=== PATIENT | female | born 1955 | race Caucasian/White ===

== ENCOUNTER 2024-04-06 10:36 | Outpatient (AMB) | payer MEDICARE, SELFPAY ==
--- NOTE | 2024-04-06 10:49 | A.OFFVIS_ITS ---
Vital Signs 04/06/24 10:50 Height 5 ft 7.5 in Weight 156 lb 4.924 oz BMI 24.1 BP 120/62 Blood Pressure Location Lt brachial Position Sitting Pulse 85 Pulse Source Pulse Oximeter Pulse Oximetry (%) 96 Oxygen Delivery Method Room Air Intake Visit Reasons: OA/MR Recieved Intake Note: Patient presents for OA follow up, she was last seen in the office at the arthritis treatment center on 12/07/[address] Morales. Allergies sulfamethoxazole [From Bactrim] Allergy (Mild, Verified 04/06/24 10:53) Rash trimethoprim [From Bactrim] Allergy (Mild, Verified 04/06/24 10:53) Rash erythromycin base Adverse Reaction (Mild, Verified 04/06/24 10:53) stomach upset, diarrhea Medication List - Last Reconciled 04/06/24 by Mak Morales MD amlodipine 5 mg PO DAILY arm brace (Wrist Brace) Wear on right wrist during the day when needed. Right CMC splint. Dx osteoarthritis CMC levothyroxine 100 mcg PO DAILY lisinopril 30 mg PO DAILY rosuvastatin 5 mg PO DAILY HPI HPI OA/MR Recieved: Details: Goint to PT for R medial epicondyltis with benefit. Pain in right elbow is now a few times a week. She has modified her exercise routine at the gym. She sporadically experiences pain in right CMC about once every 6 weeks. She uses diclofenac gel with benefit. Records reviewed from [facility] [place]. Rheumatology history: She has history of osteoarthritis affecting bilateral CMCs right worse than left. She also has clinical diagnosis of right medial epicondylitis. Review of Systems Const All systems reviewed & are unremarkable except as noted in HPI and below Physical Exam Vital Signs: Last Vital Signs Pulse 85 04/06/24 10:50 BP 120/62 04/06/24 10:50 Pulse Ox 96 04/06/24 10:50 Oxygen Delivery Method Room Air 04/06/24 10:50 BMI result Body Mass Index 24.1 Const General: cooperative and healthy appearing Extrem Other: Tender to palpate right CMC with squaring. Bilateral CMCs have squaring deformity. No tenderness of right medial epicondyle. No pain at right medial epicondyle with resisted elbow extension and flexion. No swelling of any joints. Assessment & Plan Assessment & Plan (1) Osteoarthritis of CMC joint of thumb: Comment: Right CMC pain is intermittent. We discussed ventricles are of osteoarthritis and management. Code(s): M18.9 - Osteoarthritis of first carpometacarpal joint, unspecified Category: Medical Plan: Continue using diclofenac gel 1% applied to affected area every 4-6 hours as needed CMC splint right side prescribed She will use right CMC splint when she anticipates repetitive motions with her hands such as cooking, gardening or cleaning Return to clinic in 3 months (2) Medial epicondylitis of right elbow: Comment: Improvement with physical therapy Code(s): M77.01 - Medial epicondylitis, right elbow Category: Medical Plan: I recommend that she continue physical therapy and discuss adding ultrasound therapy Return to clinic in 3 months Plan . Medications: New arm brace (Wrist Brace) Wear on right wrist during the day when needed. Right CMC splint. Dx osteoarthritis CMC 1 ea 0RF CMC osteoarthritis M18.9 - Osteoarthritis of first carpometacarpal joint, unspecified Coding Level of Care Code Est Pt Level 3 (94726) Complex EM visit Add On G2211 Diagnoses Osteoarthritis of CMC joint of thumb M18.9 Medial epicondylitis of right elbow M77.01
[2024-04-06 10:50] VITALS: BP 120/62; PULSE 85; O2SAT 96; BMI 24.1
== END 2024-04-06 11:44 | disposition home or self-care (01) ==
PROVIDERS: PCP Family Medicine; Visit Provider Internal Medicine Rheumatology
DX: M18.9 Osteoarthritis of first carpometacarpal joint, unspecified (principal); M77.01 Medial epicondylitis, right elbow
CPT/HCPCS: 99213; G2211

== ENCOUNTER → 2024-04-06 10:36 | Outpatient (BNVA) | payer MEDICARE, SELFPAY | PROVIDERS: PCP Family Medicine; Visit Provider Internal Medicine Rheumatology | DX: M77.01 Medial epicondylitis, right elbow (principal); M18.11 Unilateral primary osteoarthritis of first carpometacarpal joint, right hand | CPT/HCPCS: 99212 ==

== ENCOUNTER 2024-07-07 10:23 | Outpatient (AMB) | payer MEDICARE, SELFPAY ==
--- NOTE | 2024-07-07 10:38 | MHC.OFFVIS ---
Vital Signs 07/07/24 10:40 Height 5 ft 7.5 in Weight 166 lb BMI 25.6 BP 130/70 Blood Pressure Location Lt brachial Position Sitting Pulse 87 Pulse Source Pulse Oximeter Pulse Oximetry (%) 97 Oxygen Delivery Method Room Air Intake Visit Reasons: 3 mo follow up Intake Note: Patient presents for OA follow up. Allergies sulfamethoxazole [From Bactrim] Allergy (Mild, Verified 07/07/24 10:40) Rash trimethoprim [From Bactrim] Allergy (Mild, Verified 07/07/24 10:40) Rash erythromycin base Adverse Reaction (Mild, Verified 07/07/24 10:40) stomach upset, diarrhea HPI HPI 3 mo follow up: Details: Pain in right elbows is intermittent with activity. Lifting her grandchildren exacerbates the pain. There will be times when she will not have any pain for a few hours, which is benefit for patient. She continues to do PT exercises regularly. She was also able to go to the gym a few times a week. She has been rowing and swimming. She was unable to get CMC splints from [facility]. She has been referred to [employer] [facility] [place] in [facility]. [facility] Medical History Elevated lipoprotein(a) Hyperlipidemia Hypothyroidism Vitamin D deficiency Arthralgia of left ankle or foot Surgical History History of colonoscopy H/O: hysterectomy History of cervical discectomy History of bladder suspension procedure Family History Mother Osteoarthritis Stroke Social History Household Members: None Alcohol intake: never Patient Tobacco Use Status: Former Tobacco user Current occupational status: employed Current occupation: membership software Review of Systems Const All systems reviewed & are unremarkable except as noted in HPI and below Physical Exam Vital Signs: Last Vital Signs Pulse 87 07/07/24 10:40 BP 130/70 07/07/24 10:40 Pulse Ox 97 07/07/24 10:40 Oxygen Delivery Method Room Air 07/07/24 10:40 BMI result Body Mass Index 25.6 Const Other: General: Comfortable Skin: No lesions seen MSK: Tender to palpate medial epicondyle right elbow. No pain with resisted wrist flexion. No soft tissue swelling. Squaring of bilateral CMCs. Assessment & Plan Assessment & Plan (1) Medial epicondylitis of right elbow: Comment: Improvement with physical therapy. Pain is now intermittent. We discussed conservative management. She is willing to try short course of NSAID for a month or 2. She was previously advised to avoid NSAIDs due to possibility of side effect with increasing blood pressure. At this time her blood pressure is controlled on 2 antihypertensives. Code(s): M77.01 - Medial epicondylitis, right elbow Category: Medical Plan: Start meloxicam 15 mg daily with food Monitor blood pressure Return to clinic in 3 months. If no benefit on NSAID, I will treat with cortisone injection. (2) Osteoarthritis of CMC joint of thumb: Comment: CMC pain is controlled. Code(s): M18.9 - Osteoarthritis of first carpometacarpal joint, unspecified Category: Medical Plan: Continue using diclofenac gel 1% applied to affected area every 4-6 hours as needed CMC splint right side prescribed. She is in the process of getting CMC splint fitted. She will use right CMC splint when she anticipates repetitive motions with her hands such as cooking, gardening or cleaning Return to clinic in 3 months Orders: Orders Aspartate Amino Transferase Today M77.01 - Medial epicondylitis, right elbow Creatinine Today M77.01 - Medial epicondylitis, right elbow Alanine Aminotransferase Today M77.01 - Medial epicondylitis, right elbow Complete Blood Count Auto Diff Today M77.01 - Medial epicondylitis, right elbow Medications: New meloxicam Take with food 15 mg PO DAILY 30 tabs 2RF Coding Level of Care Code Est Pt Level 3 (04103) Complex EM visit Add On G2211 Diagnoses Medial epicondylitis of right elbow M77.01 Osteoarthritis of CMC joint of thumb M18.9
[2024-07-07 10:40] VITALS: BP 130/70; PULSE 87; O2SAT 97; BMI 25.6
--- OUTSIDE RECORDS SUMMARY | 2024-07-07 11:32 | XMS_ITS | Data Portability ---
Author Organization [place] - [facility], Allergy Address [address] [address] Care Team Providers Care Cloth Mercerizer Operator Name Role Phone EDGAR YANES Primary Care Provider [phone] Assessment Encounter Date Assessment Date Assessment LastModified by Organization Details LastModified Time 11/24/2023 11/24/2023 68 year old female presents today for evaluation of recurrent sinusitis. On examination today she has a left deviated septum. Nasal endoscopy reveals normal nasal mucosa without any polyps or sign of infection. At this time I would recommend observation of her symptoms. Exam today is reassuring. For URI symptoms, recommend she use Afrin BID x 3 days and an intranasal steroid spray to help with sinus drainage, hopefully avoiding need for antibiotics. Her immunotherapy should help reduce any contribution of allergic rhinitis to the frequency of infections. If she has another cold and flu season with frequent antibiotic treatment she will call the office for reevaluation and consideration of sinus imaging. [email or web address] Not available 11/24/2023 13:35:46 04/20/2024 04/20/2024 69 year old female with allergic rhinitis on monthly immunotherapy presents today for evaluation of recurrent sinusitis. She completed a 7-day course of Augmentin and reports symptoms since resolved. On examination today she has a left deviated septum. Nasal endoscopy reveals normal nasal mucosa without any polyps or sign of infection. Recommend daily saline irrigations and intranasal steroid spray to help with nasal congestion and sinus drainage. Reviewed Flonase administration. Her immunotherapy should help reduce any contribution of allergic rhinitis to the frequency of infections. She will return as needed. We will consider CT sinus if she experiences recurrent sinusitis requiring antibiotics this winter. Patient also evaluated by Dr. Lind. frances Not available 04/20/2024 10:31:01 Plan of Treatment Reminders Order Date Submit Date Provider Last Modified By Organization Details Last Modified Time Details Appointments None recorded. Lab None recorded. Referral None recorded. Procedures None recorded. Surgeries None recorded. Imaging None recorded. Medication Orders Flonase Allergy Relief 50 mcg/actua tion nasal spray,estephania maldonadoniall [address] [facility]/Pharmacy #[id number], [address] [facility], [place], [address], 4 09:46:31 Patient TargetsNo targets recorded. Patient InstructionsNo instructions recorded. Reason for Referral None Reported. Problems Name Problem SNOMED Code Status Onset Date Resolution Date Notes Provider Name and Address Organization Details Recorded Time Recurrent acute sinusitis 141845575 Active ODALIS BELLO PA-C [address] [facility],[address] [facility], [place], [address], [place] - [facility] 4 13:32:59 Deviated nasal septum 070043883 Active 024 ODALIS BELLO PA-C [address] [facility],[address] [place] [address], [address], [place] - [facility] 4 13:33:04 Nasal congestion 70379614 Active VALDO RAYO PA-C [address] [facility],[address] [facility], [place], [address], [facility] - [facility] 4 09:43:58 Problem Notes None recorded. Procedures Surgical History Date Name Laterality Status Provider Name and Address Organization Details Recorded Time 04/20/20 24 Nasal Endoscopy completed VALDO RAYO PA-C [address] [facility],[address], [address], [facility] - [facility] 04/20/2024 10:09:06 11/24/19 24 JMSNasal/Sinus Endoscopy completed ODALIS BELLO PA-C [address] [facility],[address], [address], [place] - [facility] 11/24/2023 13:32:53 Hysterectomy completed Gabby Rodriguez [place] - [facility] 11/24/2023 13:09:28 Imaging Results None recorded. Procedure Notes None recorded. Medical Equipment None Reported. Allergies Allergen ID Allergen Name Allergen Category Reaction Reaction Severity Criticality Documentation Date Start Date Code Code System Note Provider Name and Address Organization Details Recorded Time 419190 Bactrim medicatio n Not available Not available Not available 11/24/2023 91553 9 RxNorm Gabby beal, [place] - [facility] 4 13:08:45 051227 erythromy misael medicatio n Not available Not available Not available 11/24/2023 4053 RxNorm Gabby beal, [place] - [facility] 4 13:08:59 Medications Name Sig Start Date Stop Date Status Note LastModified by Organization Details LastModified Time cetirizine 10 mg tablet TAKE 1 TABLET BY MOUTH EVERY DAY NEEDED FOR 30 DAYS active Not Available Not Available No t Available ciprofloxaci n 250 mg tablet PLEASE SEE ATTACHED FOR DETAILED DIRECTIONS active Not Available Not Available N ot Available amlodipine 5 mg tablet TAKE 1 TABLET BY MOUTH EVERY DAY active Not Available Not Available No t Available levothyroxin e 100 mcg tablet TAKE 1 TABLET BY MOUTH EVERY DAY FOR 90 DAYS active Not Available Not Available No t Available polymyxin B sulfate 10,000 unit-trimeth oprim 1 mg/mL eye drops INSTILL 1 DROP IN EACH AFFECTED EYE 3 TIMES A DAY 7 DAYS active Not Available Not Available No t Available lisinopril 30 mg tablet TAKE 1 TABLET BY MOUTH EVERY DAY active Not Available Not Available No t Available montelukast 10 mg tablet TAKE 1 TABLET BY MOUTH EVERY DAY FOR 90 DAYS active Not Available Not Available No t Available hydrochlorot hiazide 25 mg tablet TAKE 1 TABLET BY MOUTH EVERY DAY active Not Available Not Available No t Available estradiol 0.01% (0.1 mg/gram) vaginal cream APPLY AN APPLICATORF UL VAGINALLY 2 TIMES PER WEEK active Not Available Not Available No t Available fluticasone propionate 50 mcg/actuatio n nasal spray,suspen brittney [place] 2 sprays every day by intranasal route, for seasonal allergies, nasal congestion. active Not Available Not Available Not Available amoxicillin 875 mg-potassium clavulanate 125 mg tablet TAKE 1 TABLET BY MOUTH EVERY 12 HOURS FOR 10 DAYS active Not Available Not Available Not Available rosuvastatin 5 mg tablet TAKE 1 TABLET BY MOUTH EVERY DAY FOR 90 DAYS active Not Available Not Available No t Available nitrofuranto in monohydrate/ macrocrystal s 100 mg capsule TAKE 1 CAPSULE BY MOUTH TWICE A DAY active Not Available Not Available No t Available Paxlovid 300 mg (150 mg x 2)-100 mg tablets in a dose pack TAKE 3 TABLETS BY MOUTH TWICE A DAY FOR 5 DAYS DIRECTED active Not Available Not Available No t Available Vitals Date Recorded Body height Body mass index (BMI) Body weight Provider Name and Address Organization Details Last Updated DateTime 11/24/2023 171.45 cm 25 kg/m2 39260.96 g Gabby Rodriguez [place] - [facility] 11/24/2023 13:08:35 Date Recorded Body height Body mass index (BMI) Body weight Provider Name and Address Organization Details Last Updated DateTime 04/20/2024 171.45 cm 25 kg/m2 85677.96 g Gabby [facility] - [facility] 04/20/2024 09:18:34 Social History None recorded. Functional Status None recorded. Mental Status None recorded. Family History Nothing Reported. Medical History No medical history recorded. Gynecological HistoryNo gynecological history recorded. Obstetrics History GPAL:G 0 P 0 0 0 0 Past Encounters Encounter ID Performer Location Encounter Start Date Encounter Closed Date Diagnosis/Indication Diagnosis SNOMED-CT Code Diagnosis ICD10 Code Diagnosis Note [id number] DOALIS BELLO PA-C [facility] [address] [address] 11/24/2023 12:50:08 11/24/2023 13:59:17 Recurrent acute sinusitis 999732283 J01.91 Deviated nasal septum 12 0918561 J34.2 [id number] AURELIO LIND MD [facility] [address] [place] [address] 04/20/2024 09:11:30 04/20/2024 10:08:25 Deviated nasal septum 396200521 J34.2 Recurrent acute sinusitis 317096341 J01.91 Nasal congestion 0701159 0 R09.81 Health Concerns Section Related Observation LastModified by Organization Detai ls LastModified Time None Recorded Concern Status LastModified by Organization Details LastModified Time None Recorded Advance Directives Directive None Recorded Payers Encounter Date Sequence Insurance Name Policy Number Policy Mixon Covered Member ID Mixon Member ID Guarantor Name 11/24/2023 1 [facility]: MEDICARE PPO BLUE (MEDICARE REPLACEMENT PPO) [id number] Mariel Stanleynchon [id number] Mariel Mccrayhon 04/20/2024 1 [facility]: MEDICARE PPO BLUE (MEDICARE REPLACEMENT PPO) [id number] Mariel Stanleynchon [id number] Mariel Mccrayhon Notes Date Note Type Note Provider Name and Address Organization Details Recorded Time 11/24/2023 text/html 68 year old yas zarate presents today for evaluation of recurrent sinus infections.She reports a history of maybe one sinus infection per year. This past winter from February to she had recurrent upper respiratory infection, she was treated three times with antibiotics. She reports the antibiotics did eventually clear with the antibiotics. She has no chronic nasal congestion. Her sense of smell is normal. She has no chronic facial pain or pressure.She has a history of seasonal allergies and his currently undergoing SCIT with AIANE. She started that about 18 months ago. She uses a neti pot. She takes Lilibeth as needed.She has not had any imaging to date. ODALIS BELLO PA-C [address], [address], [facility] - [facility] 11/24/2023 13:36:01 04/20/2024 text/html 69 year old yas zarate with allergic rhinitis on monthly immunotherapy presents today for evaluation of recurrent sinusitis. She reports an URI 4 weeks ago that transitioned into an acute sinus infection. Symptoms at the time included facial pressure, upper dental pain, and green malodorous nasal drainage. She was treated with 7-day course of Augmentin and endorses symptoms resolved with the antibiotic. Reports this is her second sinusitis episode this year. Today she reports some residual nasal congestion. Denies nasal obstruction, rhinorrhea, anosmia, facial pain, dental pain, otalgia, or throat involvement. Denies headache or migraine. She is not currently using Neti Pot saline irrigations or intranasal steroid spray. No history of sinus surgery. AURELIO LIND MD [address] [facility],[address], [address], [facility] - [facility] 04/20/2024 15:20:08 OBGyn Episode No OBEpisode recorded.
--- OUTSIDE RECORDS SUMMARY | 2024-07-07 11:32 | XMS_ITS | Continuity of Care Document ---
Author Organization [facility] Address [address] [facility] [address] [place], [place] Phone [phone] Care Team Providers Care Solutions Sales Consultant Name Role Phone Adriana Monroy Care Team Information Receive r SHIVANI Avila M.D. 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 Social History Type Date Description Comments Sex Unknown Allergies and adverse reactions Active Allergies Criticality Reaction Severity Comments Date Bactrim Unable to assess criticality 02/04/2018 Medications Active Medications SIG Qnty Indications Order ing Provider Date Maeeckuwcx93no Tablets Take 1 Tablet Every Day Unknown Multivitamin WomensChewtabs 1 tab by mouth every day Unknown ProbioticCapsules 1 by mouth every day Unknown BiotinCapsules 1 every day Unknown Cromolyn Sodium4% Solution Instill 1 To 2 Drops In Each Eye 4 To 6 Times Daily If Needed For Juan Unknown Axjsmtrmz418hob Tablets 1 by mouth every day 90tabs Adriana Monroy Amlodipine Xurkzcid3ox Tablets Take 1 Tablet Every Day Unknown Clonidine HCL0.1mg Tablets Take 1 Tablet AT Bedtime Unknown Nbgqrgpvwzveaiugego91.5mg Capsules Take One Capsule Every Day Unknown Olopatadine HCL0.1% Solution Adriana Monroy History Medications Clonidine HCL0.1mg/24HR Patches Weekly Unknown - 02/04/2018 Tobramycin-Dexamethasone0 .3-0.1% Suspension Unknown 0 - 02/04/2018 Rgqnaqxjjgavnfpycsa74.5mg Tablets Adriana Monroy - 02/04/2018 Dhovfugxnhgpmmlyhjy54hf Tablets Take 1 Tablet By Mouth Once A Day as Directed Unknown - 02/04/2018 Llivhq25% Solution Unknown - 02/04/2018 Premarin0.625mg Tablets Take 1 Tablet By Mouth Every Day Unknown - 02/04/2018 Diclofenac Sodium1% Gel Apply 4 GM To Hi p 2-3 Times Per Day For 10 Days For Itb Syndrome Unknown - 02/04/2018 Triamcinolone Acetonide0.1% Cream Apply To Affected Areas On Abdomen Twice Daily For Itch. Not For Use O Unknown - 02/04/2018
== END 2024-07-07 11:15 | disposition home or self-care (01) ==
PROVIDERS: PCP Family Medicine; Visit Provider Internal Medicine Rheumatology
DX: M77.01 Medial epicondylitis, right elbow (principal); M18.9 Osteoarthritis of first carpometacarpal joint, unspecified
CPT/HCPCS: 99213; G2211

== ENCOUNTER → 2024-07-07 10:23 | Outpatient (BNVA) | payer MEDICARE, SELFPAY | PROVIDERS: PCP Family Medicine; Visit Provider Internal Medicine Rheumatology | DX: M77.01 Medial epicondylitis, right elbow (principal); M18.9 Osteoarthritis of first carpometacarpal joint, unspecified | CPT/HCPCS: 99212 ==

== ENCOUNTER 2024-10-06 10:23 | Outpatient (AMB) | payer MEDICARE, SELFPAY ==
[2024-10-06 10:25] VITALS: BP 130/80; PULSE 78; O2SAT 98
--- NOTE | 2024-10-06 10:25 | A.OFFVIS_ITS ---
Vital Signs 10/06/24 10:25 Height 5 ft 7.5 in BP 130/80 Blood Pressure Location Lt brachial Position Sitting Pulse 78 Pulse Source Pulse Oximeter Pulse Oximetry (%) 98 Oxygen Delivery Method Room Air Intake Visit Reasons: 3 Months Intake Note: Patient presents for OA follow up. Accompanied by: Self / Same As Patient Allergies sulfamethoxazole [From Bactrim] Allergy (Mild, Verified 10/06/24 10:25) Rash trimethoprim [From Bactrim] Allergy (Mild, Verified 10/06/24 10:25) Rash erythromycin base Adverse Reaction (Mild, Verified 10/06/24 10:25) stomach upset, diarrhea HPI HPI 3 Months: Details: Meloxicam caused insomnia. PT helped. Movements with lifting grandchildren and gardening exacerbates pain. Lasts the day. Gardening aggrevates right CMC. PFSH Medical History Elevated lipoprotein(a) Hyperlipidemia Hypothyroidism Vitamin D deficiency Arthralgia of left ankle or foot Surgical History History of colonoscopy H/O: hysterectomy History of cervical discectomy History of bladder suspension procedure Family History Mother Osteoarthritis Stroke Social History Household Members: None Alcohol intake: never Patient Tobacco Use Status: Former Tobacco user Current occupational status: employed Current occupation: membership software Physical Exam Vital Signs: Last Vital Signs Pulse 78 10/06/24 10:25 BP 130/80 10/06/24 10:25 Pulse Ox 98 10/06/24 10:25 Oxygen Delivery Method Room Air 10/06/24 10:25 Assessment & Plan Assessment & Plan (1) Medial epicondylitis of right elbow: Comment: Improvement with physical therapy. Onset of pain is related to triggering activity such as lifting grandchildren and gardening. We discussed next steps with trying an alternative NSAID. She had rare side effect of insomnia due to meloxicam use. She is willing to try elbow support band with 2 week period of Celebrex. We discussed side effects of Celebrex. Code(s): M77.01 - Medial epicondylitis, right elbow Category: Medical Plan: Start celecoxib 200 mg twice a day Prescription for elbow support band given to patient Monitor blood pressure Return to clinic in 3 months. If no benefit on NSAID, I will treat with cortisone injection. (2) Osteoarthritis of CMC joint of thumb: Comment: CMC pain is no controlled Code(s): M18.9 - Osteoarthritis of first carpometacarpal joint, unspecified Category: Medical Plan: Occupational therapy ordered with customized CMC splint, paraffin wax bath trial, and exercise program. She prefers to do occupational therapy in [place]. Prescription given to patient Return to clinic in 3 months. If no improvement, consider cortisone injection next visit Orders: Orders OT Evaluation and Treatment Today M18.9 - Osteoarthritis of first carpometacarpal joint, unspecified Medications: New arm brace As directed Right elbow support band Dx: medial epicondylitis 1 ea 0RF celecoxib 200 mg PO BID 60 caps 2RF Discontinued meloxicam Take with food Discontinued Reason: Doctor's Order 15 mg PO DAILY 30 tabs 2RF Coding Level of Care Code Est Pt Level 4 (70642) Complex EM visit Add On G2211 Diagnoses Medial epicondylitis of right elbow M77.01 Osteoarthritis of CMC joint of thumb M18.9
--- OUTSIDE RECORDS SUMMARY | 2024-10-06 10:56 | XMS_ITS | Encounter Summary ---
Author Organization [facility] Address [address] [facility] [address] [place] [address] Phone Care Team Providers Care Retort Loader Name Role Phone Kristi Sheehan MD Primary Care Provider + Reason for Visit * Reason Comments Med Refill Encounter Details Date Type Department Care Team (Late st Contact Info) Description 10/05/2020 Refill [facility] [address] [facility] [address] [place] [address] Micheal Figueredo MD [address] [facility] [address] [place] [phone] Social History Tobacco Use Types Packs/Day Years Used Date Smoking Tobacco: Never Assessed Comments Unknown Sex and Gender Information Value Date Recorded Sex Assigned at Not on file Legal Sex Female 4:35 PM EST Gender Identity Not on file Sexual Orientation Not on file documented as of this encounter Miscellaneous Notes * Telephone Encounter - Jazmin Leija - 10/17/2020 4:49 PM EDT When I checked last week I couldn't find her at all; but when I checked today I somehow can see herchart on [facility] and [facility] and most previous notes. --Not sure what happened there? * Telephone Encounter - Micheal Figueredo MD - 10/06/2020 11:06 AM EDT I cannot find a chart on her in [facility] or 2 but I believe we have seen her. Maybe she is under another name? documented in this encounter Plan of Treatment Not on file documented as of this encounter Visit Diagnoses Not on filedocumented in this encounter Care Teams Retort Loader Relationship Specialty Start Date End Date Kristi Sheehan MD [address] [place] [phone] PCP - General Family Medicine 11/12/22 documented as of this encounter
--- OUTSIDE RECORDS SUMMARY | 2024-10-06 10:56 | XMS_ITS | Continuity of Care Document ---
Author Organization [facility] Address [address] [facility] [address] [place], [place] Phone [phone] Care Team Providers Care Machine Filler Shredder Name Role Phone Adriana Monroy Care Team [...] SIG Qnty Indications Order ing Provider Date Vsgxnfifff12fb Tablets Take 1 Tablet Every Day Unknown Multivitamin WomensChewtabs 1 tab by mouth every day Unknown ProbioticCapsules 1 by mouth every day Unknown BiotinCapsules 1 every day Unknown Cromolyn Sodium4% Solution Instill 1 To 2 Drops In Each Eye 4 To 6 Times Daily If Needed For Juan Unknown Zaemakzwm058xkx Tablets 1 by mouth every day 90tabs Adriana Monroy Amlodipine Ytvhimrs0lv Tablets Take 1 Tablet Every Day Unknown Clonidine HCL0.1mg Tablets Take 1 Tablet AT Bedtime Unknown Wcciacivdskuxsilatx99.5mg Capsules Take One Capsule Every Day Unknown Olopatadine HCL0.1% Solution Adriana Monroy History Medications Clonidine HCL0.1mg/24HR Patches Weekly Unknown - 02/04/2018 Tobramycin-Dexamethasone0 .3-0.1% Suspension Unknown 0 - 02/04/2018 Ituglduxztzsehksilr56.5mg Tablets Adriana Monroy - 02/04/2018 Qpideentdlnquqjfstn95ve Tablets Take 1 Tablet By Mouth Once A Day as Directed Unknown - 02/04/2018 Rbxcah26% Solution Unknown - 02/04/2018 Premarin0.625mg Tablets Take [...]
--- OUTSIDE RECORDS SUMMARY | 2024-10-06 10:56 | XMS_ITS | Encounter Summary ---
Author Organization [facility] Address 100 [facility] 200 [place] [address] Phone Care Team Providers Care Supplier Quality Engineer Name Role Phone Kristi Sheehan MD Primary Care Provider + Encounter Details Date Type Department Care Team (Late st Contact Info) Description 10/03/2021 Documentation Only [facility] 100 [facility] 200 [place] [address] Micheal Figueredo MD [address] [facility] 204 [place] [phone] Social History Tobacco Use Types Packs/Day Years Used Date Smoking Tobacco: Never Smokeless Tobacco: Never Alcohol Use Standard Drinks/Week Comments Yes 0 (1 standard drink = 0.6 oz pure alcohol) Alcoholic Drinks/day: Occasional social drink Comments Unknown Sex and Gender Information Value Date Recorded Sex Assigned at Not on file Legal Sex Female 4:35 PM EST Gender Identity Not on file Sexual Orientation Not on file documented as of this encounter Plan of Treatment Not on file documented as of this encounter Visit Diagnoses Not on filedocumented in this encounter Care Teams Supplier Quality Engineer Relationship Specialty Start Date End Date Kristi Sheehan MD [address] [place] [phone] PCP - General Family Medicine 11/12/22 documented as of this encounter
--- OUTSIDE RECORDS SUMMARY | 2024-10-06 10:56 | XMS_ITS | Encounter Summary ---
Author Organization [facility] Address 100 [facility] 200 [place] [address] Phone Care Team Providers Care Pediatric Surgeon Name Role Phone Kristi Sheehan MD Primary Care Provider + Reason for Visit * Reason Comments Med Refill Encounter Details Date Type Department Care Team (Late st Contact Info) Description 06/30/2021 Refill [facility] 100 [facility] 200 [place] [address] Micheal Figueredo MD [address] [facility] 204 [place] [phone] Social History Tobacco Use Types Packs/Day Years Used Date Smoking Tobacco: Never Alcohol Use Standard Drinks/Week Comments [...] encounter Miscellaneous Notes * Telephone Encounter - Micheal Figueredo MD - 06/30/2021 5:07 PM EST Not seen in years documented in this encounter Plan of Treatment Not on file documented as of this encounter Visit Diagnoses Not on filedocumented in this encounter Care Teams Pediatric Surgeon Relationship Specialty Start Date End Date Kristi Sheehan MD [address] [place] [phone] PCP - General Family Medicine 11/12/22 documented as of this encounter
--- OUTSIDE RECORDS SUMMARY | 2024-10-06 10:56 | XMS_ITS | Clinical Summary ---
Author Organization [facility] Address 100 [facility] [address] 0 [place] [address] Phone Care Team Providers Care Polisher Sand Name Role Phone Kristi Sheehan MD Primary Care Provider + Allergies Active Allergy Reactions Criticality Noted Date Comments Azithromycin Rash Low 03/03/2017 Erythromycin 05/17/2017 Ibuprofen 03/03/2017 Cannot take due to HTN Oxycodone-Acetaminophen Nausea Only 03/03/2017 Can tolerate tylenol with codeine Sulfamethoxazole-Trimethopr im Rash Low 03/03/2017 Medications levothyroxine (SYNTHROID, LEVOTHROID) 100 MCG tablet Take 100 mcg by mouth 1 (one) time each day 7 Active rosuvastatin (CRESTOR) 5 MG tablet Take 5 mg by mouth 1 (one) time each day 3 Active hydroCHLOROthia zide 25 MG tablet TAKE 1 TABLET BY MOUTH 1 TIME EACH DAY. 90 tablet 3 3 Active amLODIPine (NORVASC) 5 MG tablet TAKE 1 TABLET BY MOUTH EVERY DAY 90 tablet 1 5 Active lisinopril (PRINIVIL,ZESTR IL) 30 MG tablet TAKE 1 TABLET BY MOUTH EVERY DAY 90 tablet 1 5 Active amLODIPine (NORVASC) 5 MG tablet Take 1 tablet (5 mg total) by mouth 1 (one) time each day 90 tablet 1 4 09/22/19 25 Discontinued lisinopril (PRINIVIL,ZESTR IL) 30 MG tablet Take 1 tablet (30 mg total) by mouth 1 (one) time each day 90 tablet 1 4 05/07/20 25 Discontinued Active Problems Problem Noted Date Diagnosed Date Hypertension 08/03/2017 Encounters Date Type Department Care Team Description 09/21/2024 Refill [facility] 100 [facility] [address] [place] [address] Micheal Figueredo MD from Last 3 Months Immunizations Immunization Administration Dates Next Due Influenza Split High Dose Preservative Free IM 1 Influenza, MDCK, PF, Quadrivalent 03/10/2018, Influenza, Quadrivalent, Preservative Free 05/13 Influenza, Recombinant, Quadrivalent, Pf 019 Family History Medical History Relation Comments Cancer Father Lung cancer Heart disease Father Hypertension Mother Relation Status Comments Father (Age 62) Mother Alive Social History Tobacco Use Types Packs/Day Years [...] on file Sexual Orientation Not on file Last Filed Vital Signs Vital Sign Reading Time Taken Comments Blood Pressure 136/68 11/12/2022 9:46 AM EDT Pulse 68 11/12/2022 9:46 AM EDT Temperature - - Respiratory Rate - - Oxygen Saturation 97% 11/12/2022 9:46 AM EDT Inhaled Oxygen Concentration - - Weight 74.9 kg (165 lb 3.2 oz) 11/12/2022 9:46 A M EDT Height 172.7 cm (5' 8 ) 11/12/2022 9:46 AM EDT Body Mass Index 25.12 11/12/2022 9:46 AM EDT Plan of Treatment Health Maintenance Due Date Last Done Comments Breast Cancer Screening 1955 Colorectal Cancer Screening: Annual FOBT 2003 Colorectal Cancer Screening: Colonoscopy 2003 Colorectal Cancer Screening: Sigmoidoscopy 2003 Pneumococcal Vaccine: 50+ Years (2 of 2 - PPSV23, PCV20, or PCV21) 09/30/2012 08/05/2012 Influenza Vaccine (Season Ended) 2025 02/22/2020, 03/03/2019, 03/10/2018, Additional history exists Pneumococcal Vaccine: Peds (0 to 5 Years) and At-Risk Patients (6 to 49 Years) Discontinued 08/05/2012 Hepatitis B Vaccine Aged Out No longe r eligible based on patient's age to complete this topic Insurance [facility] Care Teams Polisher Sand Relationship Specialty Start Date End Date Kristi Sheehan MD [address] [place] [phone] PCP - General Family Medicine 11/12/22
== END 2024-10-06 11:08 | disposition home or self-care (01) ==
LOC: HO.RHES 10:24
PROVIDERS: PCP Family Medicine; Visit Provider Internal Medicine Rheumatology
DX: M77.01 Medial epicondylitis, right elbow (principal); M18.9 Osteoarthritis of first carpometacarpal joint, unspecified
CPT/HCPCS: 99214; G2211

== ENCOUNTER → 2024-10-06 10:23 | Outpatient (BNVA) | payer MEDICARE, SELFPAY | PROVIDERS: PCP Family Medicine; Visit Provider Internal Medicine Rheumatology | DX: M77.01 Medial epicondylitis, right elbow (principal); M18.9 Osteoarthritis of first carpometacarpal joint, unspecified | CPT/HCPCS: 99212 ==

== ENCOUNTER 2025-04-11 09:39 | Outpatient (AMB) | payer MEDICARE, SELFPAY ==
--- NOTE | 2025-04-11 09:42 | A.OFFVIS_ITS ---
Vital Signs 04/11/25 09:43 Height 5 ft 7.5 in Weight 168 lb 6.931 oz BMI 26.0 BP 140/80 H Blood Pressure Location Lt brachial Position Sitting Pulse 81 Pulse Source Pulse Oximeter Pulse Oximetry (%) 98 Oxygen Delivery Method Room Air Intake Visit Reasons: 3 months Intake Note: Patient presents for OA follow up. Accompanied by: Self / Same As Patient Allergies sulfamethoxazole (From Bactrim) Allergy (Mild, Verified 04/11/25 09:43) Rash trimethoprim (From Bactrim) Allergy (Mild, Verified 04/11/25 09:43) Rash erythromycin base Adverse Reaction (Mild, Verified 04/11/25 09:43) stomach upset, diarrhea HPI HPI 3 months: Details: Elbow discomfort is less frequent with activity modification. Completed OT. She was on Celebrex for 3 weeks without benefit. She has underlying history of hypertension and does not want to be on NSAIDs shelter. She has not been consistent with home exercise program. 2 weeks ago she started feeling tightness behind the right knee. Precipitated with contra dancing. Denies knee swelling. Knee initially buckled. She iced knee. She had recurrent knee buckling. She saw ortho. X-ray showed arthritis. She had a cortisone injection. Pain 1- 2/10 now, improved. She has PT scheduled next month 04/2025. Certain movements agrevates right knee pain. [facility] Medical History Elevated lipoprotein(a) Hyperlipidemia Hypothyroidism Vitamin D deficiency Arthralgia of left ankle or foot Surgical History History of colonoscopy H/O: hysterectomy History of cervical discectomy History of bladder suspension procedure Family History Mother Osteoarthritis Stroke Social History Household Members: None Alcohol intake: never Patient Tobacco Use Status: Former Tobacco user Current occupational status: employed Current occupation: [email or web address] Physical Exam Vital Signs: Last Vital Signs Pulse 81 04/11/25 09:43 BP 140/80 H 04/11/25 09:43 Pulse Ox 98 04/11/25 09:43 Oxygen Delivery Method Room Air 04/11/25 09:43 BMI result Body Mass Index 26.0 Const Other: General: Comfortable Skin: No lesions seen MSK: No tenderness to palpate medial epicondyle right elbow. No pain with resisted wrist flexion. No soft tissue swelling. Squaring of bilateral CMCs. No tenderness of right knee. Normal range of motion of knee. Negative anterior and positive drawer sign. No knee effusion. Assessment & Plan Assessment & Plan (1) Medial epicondylitis of right elbow: Comment: Improvement with occupational therapy. Frequency is less with activity modification. Rheumatology history: Onset of pain is related to triggering activity such as lifting grandchildren and gardening. She had rare side effect of insomnia due to meloxicam use. She is willing to try elbow support band with 2 week period of Celebrex. Celebrex was ineffective. Completed OT. Code(s): M77.01 - Medial epicondylitis, right elbow Category: Medical Plan: Continue home exercise program learned from OT Return to clinic PRN. If she has a flare, she will call office for an appointment for cortisone injection (2) Osteoarthritis of CMC joint of thumb: Comment: CMC pain is controlled with occupational therapy Code(s): M18.9 - Osteoarthritis of first carpometacarpal joint, unspecified Category: Medical Plan: She will resume exercises learned from occupational therapy Return to clinic PRN (3) Right knee pain: Comment: Likely related to osteoarthritis flare in setting of new activity contra dancing. Improved substantially with cortisone injection given to her by orthopedic surgeon. Unremarkable exam. Code(s): M25.561 - Pain in right knee Category: Medical Plan: I recommend that she start physical therapy that is schedule next month Use knee brace for support. She will try to purchase [facility] compression sleeve. If she does not find benefit with compression sleeve, she may call office for prescription for hinged brace Return to clinic PRN She will follow up with orthopedic surgery after she completes PT Coding Level of Care Code Complex visit Add On G2211 Diagnoses Medial epicondylitis of right elbow M77.01 Osteoarthritis of CMC joint of thumb M18.9 Right knee pain M25.561
[2025-04-11 09:43] VITALS: BP 140/80; PULSE 81; O2SAT 98; BMI 26.0
--- OUTSIDE RECORDS SUMMARY | 2025-04-11 11:13 | XMS_ITS | Encounter Summary ---
Author Organization [facility] Address [address] [place] [address] Phone Care Team Providers Care Luncheonette Operator Name Role Phone Pcp, Unknown Primary Care Provider UnavailAdriana Tsai MD Primary Care Provider [phone] Adriana Monroy MD Primary Care Provider [phone] Kristi Sheehan MD Primary Care Provider + Encounter Details Date Type Department Care Team (Late st Contact Info) Description 03/07/2017 Ancillary Orders [address] [address] Vera Pitts MD m Screening breast examination Social History Tobacco Use Types Packs/Day Years Used Date Smoking Tobacco: Never Assessed Comments Unknown Sex and Gender Information Value Date Recorded Sex Assigned at Female 11/21/2021 5:09 PM EDT Legal Sex Female 6:22 PM EST Gender Identity Female 11/21/2021 5:09 PM EDT Sexual Orientation Straight 11/21/2021 5: 09 PM EDT documented as of this encounter Plan of Treatment Upcoming Encounters Date Type Department Care Team (Late Contact Info) Description 05/05/2025 8:00 AM EST Office Visit [facility] Orthopedics & Sports Medicine [address] [place] [phone] Amita Rivera MD [address] [place] [address] Orthopedics & Sports Medicine, [facility] [place] [address] [email or web address] documented as of this encounter Results * BI MAMMOGRAM SCREENING WITH TOMOSYNTHESIS WITH CAD (BILATERAL) (04/03/2017 4:24 PM EST) Anatomical Region Laterality Modality Breast Left, Breast Right, Breast Bilateral Bila teral Mammography 04/06/2017 9:31 AM EST Impressions 04/06/2017 9:58 AM EST No mammographic change indicative of malignancy. Routine screening is recommended. BI-RADS CATEGORY: 2 - Benign finding. DENSITY: There are scattered fibroglandular densities. POS - CDHMAMA Narrative 04/06/2017 9:58 AM EST FINDINGS: Bilateral full-field digital screening mammography is obtained and read in conjunction with computer-aided detection. 3-D tomosynthesis as well as 2-D C view imaging is also performed. Comparison includes the most recent exam from 04/02/2016 and as far back as 03/11/2011. Breast parenchyma is composed of scattered fibroglandular densities. Scattered benign-appearing calcifications. No new dominant mass, suspicious microcalcifications, architectural distortion, focal skin thickening, or new asymmetry is detected. Procedure Note Reed Maher MD - 04/06/2017 FINDINGS: Bilateral full-field digital screening mammography is obtained and read inconjunction with computer-aided detection. 3-D tomosynthesis as well as2-D C view imaging is also performed. Comparison includes the most recentexam from 04/02/2016 and as far back as 03/11/2011. Breast parenchyma is composed of scattered fibroglandular densities.Scattered benign-appearing calcifications. No new dominant mass,suspicious microcalcifications, architectural distortion, focal skinthickening, or new asymmetry is detected. IMPRESSION: No mammographic change indicative of malignancy. Routine screening isrecommended. BI-RADS CATEGORY: 2 - Benign finding. DENSITY: There are scattered fibroglandular densities. POS - CDHMAMA us Vera Pitts MD IMG MG EXAMS Final Resu lt documented in this encounter Visit Diagnoses Diagnosis Screening breast examination Other screening breast examination Screening breast examination Other screening breast examination documented in this encounter Additional Health Concerns Infection Onset Date Last Indicated Resolved Time CoV-Risk 02/24/2022 02/24/2022 03/07/2022 1:23 AM EDT documented as of this encounter Care Teams Luncheonette Operator Relationship Specialty Start Date End Date Pcp, Unknown PCP - General 03/07/17 04/02/17 Adriana Monroy MD [address] [place] [phone] [email or web address] PCP - General Internal Medicine 04/03/17 05/31/21 Adriana Monroy MD [address] [place] [phone] PCP - General Internal Medicine 06/01/21 08/23/22 Kristi Sheehan MD [address] [place] [phone] PCP - General Family Medicine 08/24/22 documented as of this encounter Additional Source Comments The information contained in this document represents components of the legal health record. It is not the complete legal health record.[facility]
--- OUTSIDE RECORDS SUMMARY | 2025-04-11 11:13 | XMS_ITS | Encounter Summary ---
Author Organization [facility] Address [address] [place] [address] Phone Care Team Providers Care Elephant Tamer Name Role Phone Adriana Monroy MD Primary Care Provider Kristi Sheehan MD Primary Care Provider + Encounter Details Date Type Department Care Team (Late st Contact Info) Description 02/14/2022 Procedure Pass [facility] - [address] [place] [address] Social History Tobacco Use Types Packs/Day Years Used Date Smoking Tobacco: Never Smokeless Tobacco: Never Alcohol Use Standard Drinks/Week Comments Not Currently 0 (1 standard drink = 0.6 oz pur e alcohol) Rare, 2 drinks per month Comments No Sex and Gender Information Value Date Recorded Sex Assigned at Female 11/21/2021 5:09 PM EDT Legal Sex Female 6:22 PM EST Gender Identity Female 11/21/2021 5:09 PM EDT Sexual Orientation Straight 11/21/2021 5: 09 PM EDT Occupation Industry Job Start Date Job End Date Retired Not on file Not on file Not on file documented as of this encounter Plan of Treatment Upcoming Encounters Date Type Department Care Team (Late st Contact Info) Description 05/05/2025 8:00 AM EST Office Visit [facility] Orthopedics & Sports Medicine [address] [place] [address] Amita Rivera MD [address] [place] [address] Orthopedics & Sports Medicine, [facility] [place] [address] documented as of this encounter Visit Diagnoses Not on filedocumented in this encounter Additional Health Concerns Infection Onset Date Last Indicated Resolved Time CoV-Risk 02/24/2022 02/24/2022 03/07/2022 1:23 AM EDT Assessment Noted Time PHQ-2 Depression Total Score: 0 11/22/19 4:46 PM EDT documented as of this encounter Care Teams Elephant Tamer Relationship Specialty Start Date End Date Adriana Monroy MD [address] [place] [phone] PCP - General Internal Medicine 06/01/21 08/23/22 Kristi Sheehan MD [address] [place] [phone] PCP - General Family Medicine 08/24/22 documented as of this encounter Additional Source Comments The information contained in this document represents components of the legal health record. It is not the complete legal health record.[facility]
--- OUTSIDE RECORDS SUMMARY | 2025-04-11 11:13 | XMS_ITS | Encounter Summary ---
Author Organization [facility] Address [address] [place] [address] Phone Care Team Providers Care Rn Procedure Name Role Phone Adriana Monroy MD Primary Care Provider + [phone] Adriana Monroy MD Primary Care Provider + [phone] Kristi Sheehan MD Primary Care Provider + Encounter Details Date Type Department Care Team (Late Contact Info) Description 03/11/2021 Transcribe Orders Virtual Department [address] [place] [address] Adriana Monroy MD [address] [place] [address] Localized swelling, mass and lump, unspecified (Primary Dx) Social History Tobacco Use Types Packs/Day Years [...] Description 05/05/2025 8:00 AM EST Office Visit [facility] Orthopedics & Sports Medicine [address] [place] [address] Amita Rivera MD [address] [place] [address] Orthopedics & Sports Medicine, [place] [address] [email or web address] documented as of this encounter Visit Diagnoses Diagnosis Localized swelling, mass and lump, unspecified- Primary documented in this encounter Additional Health Concerns Infection Onset Date Last Indicated Resolved Time CoV-Risk 02/24/2022 02/24/2022 03/07/2022 1:23 AM EDT documented as of this encounter Care Teams Rn Procedure Relationship Specialty Start Date End Date Adriana Monroy MD [address] [place] [phone] [email or web address] PCP - General Internal Medicine 04/03/17 05/31/21 Adriana Monroy MD [address] [place] [phone] PCP - General Internal Medicine 06/01/21 08/23/22 Kristi Sheehan MD [address] [place] [phone] PCP - General Family Medicine 08/24/22 documented as of this encounter Additional Source Comments The information contained in this document represents components of the legal health record. It is not the complete legal health record.[facility]
--- OUTSIDE RECORDS SUMMARY | 2025-04-11 11:13 | XMS_ITS | Encounter Summary ---
Author Organization [facility] [place] [facility] Address [address] [place] [address] Phone Care Team Providers Care Grain Drier Operator Name Role Phone Adriana Monroy MD Primary Care Provider + [phone] Adriana Monroy MD Primary Care Provider + [phone] Kristi Sheehan MD Primary Care Provider + Encounter Details Date Type Department Care Team (Late Contact Info) Description 03/13/2021 Ancillary Orders Virtual Department 30 [place] [address] Adriana Monroy MD 25 [place] [address] [email or web address] Localized swelling, mass and lump, unspecified Social History Tobacco Use Types Packs/Day Years [...] 05/05/2025 8:00 AM EST Office Visit [facility] Medicine [address] [place] [address] Amita Rivera MD [address] [place] [address] Orthopedics & Sports Medicine, [facility] [place] [address] [email or web address] documented as of this encounter Results * XR Sternoclavicular Joints 3 or More Views (03/13/2021 12:08 PM EDT) Anatomical Region Laterality Modality Chest Computed Radiogr aphy 03/13/2021 12:3 7 PM EDT Impressions 03/13/2021 12:39 PM EDT Unremarkable plain film appearance of the sternoclavicular joints. If there is ongoing clinical suspicion of a mass or significant separation, limited CT or MRI may be appropriate for further evaluation. POS [id number] Narrative 03/13/2021 12:39 PM EDT 3 views. No comparison No medial clavicular masses. No evidence of sternoclavicular separation. The location of the clavicular heads is symmetrical. Adjacent ribs are unremarkable. Visualized lung varela are clear. No mediastinal widening. Procedure Note Reggie Frederick MD - 03/13/2021 3 views. No comparison No medial clavicular masses. No evidence of sternoclavicular separation. The location of the clavicularheads is symmetrical. Adjacent ribs are unremarkable. Visualized lung varela are clear. No mediastinal widening. IMPRESSION: Unremarkable plain film appearance of the sternoclavicular joints. Ifthere is ongoing clinical suspicion of a mass or significant separation,limited CT or MRI may be appropriate for further evaluation. POS [id number] Adriana Monroy MD IMG XR UPPER EXTREMITY Final Result documented in this encounter Visit Diagnoses Diagnosis Localized swelling, mass and lump, unspecified Localized swelling, mass and lump, unspecified documented in this encounter Additional Health Concerns Infection Onset Date Last Indicated Resolved Time CoV-Risk 02/24/2022 02/24/2022 03/07/2022 1:23 AM EDT documented as of this encounter Care Teams Grain Drier Operator Relationship Specialty Start Date End Date Adriana Monroy MD [address] [place] [phone] PCP - General Internal Medicine 04/03/17 05/31/21 Adriana Monroy MD [address] [place] [address] PCP - General Internal Medicine 06/01/21 08/23/22 Kristi Sheehan MD [address] [place] [phone] PCP - General Family Medicine 08/24/22 documented as of this encounter Additional Source Comments The information contained in this document represents components of the legal health record. It is not the complete legal health record.[facility]
--- OUTSIDE RECORDS SUMMARY | 2025-04-11 11:13 | XMS_ITS | Encounter Summary ---
Author Organization [facility] Address [address] [place] [address] Phone Care Team Providers Care Courtesy Bus Driver Name Role Phone Adriana Monroy MD Primary Care Provider + [phone] Adriana Monroy MD Primary Care Provider + [phone] Kristi Sheehan MD Primary Care Provider + Encounter Details Date Type Department Care Team (Late Contact Info) Description 02/23/2020 Procedure Pass [facility] - [address] [place] [address] Social History Tobacco Use Types Packs/Day Years [...] Description 05/05/2025 8:00 AM EST Office Visit [facility] Orthopedics & Sports Medicine [address] [place] [address] [phone] Amita Rivera MD [address] [place] [address] Orthopedics & Sports Medicine, [facility] [place] [address] documented as of this encounter Visit Diagnoses Not on filedocumented in this encounter Additional Health Concerns Infection Onset Date Last Indicated Resolved Time CoV-Risk 02/24/2022 02/24/2022 03/07/2022 1:23 AM EDT documented as of this encounter Care Teams Courtesy Bus Driver Relationship Specialty Start Date End Date Adriana Monroy MD [address] [place] [phone] PCP - General Internal Medicine 04/03/17 05/31/21 Adriana Monroy MD [address] [place] [address] PCP - General Internal Medicine 06/01/21 08/23/22 Kristi Sheehan MD [address] [place] [address] PCP - General Family Medicine 08/24/22 documented as of this encounter Additional Source Comments The information contained in this document represents components of the legal health record. It is not the complete legal health record.[facility]
--- OUTSIDE RECORDS SUMMARY | 2025-04-11 11:13 | XMS_ITS | Encounter Summary ---
Author Organization [facility] Address [address] [place] [address] Phone Care Team Providers Care Business Operations Manager Name Role Phone Kristi Sheehan MD Primary Care Provider + Encounter Details Date Type Department Care Team (Late st Contact Info) Description 02/27/2023 Procedure Pass [facility] - [address] [place] [address] Social History Tobacco Use Types Packs/Day Years Used Date Smoking Tobacco: Never Smokeless Tobacco: Never Alcohol Use Standard Drinks/Week Comments Not Currently 0 (1 standard drink = 0.6 oz pur e alcohol) Rare, 2 drinks per month Education Answer Date Recorded Are you interested in more education? Not on francesco e 09/13/2022 Are you concerned about learning? Not on file 09/13/2022 No 09/13/2022 No 09/13/2022 Digital Access Answer Date Recorded No 10/11/2022 No 10/11/2022 Reliable internet access at home? Not on file 10/11/2022 Device with a working camera? Not on file Comments No Sex and Gender Information Value [...] Description 05/05/2025 8:00 AM EST Office Visit [facility] Orthopedics & Sports Medicine [address] [place] [address] Amita Rivera MD [address] [place] [address] Orthopedics & Sports Medicine, [place] [address] [email or web address] documented as of this encounter Visit Diagnoses Not on filedocumented in this encounter Additional Health Concerns Assessment Noted Time PHQ-2 Depression Total Score: 0 11/22/19 4:46 PM EDT documented as of this encounter Care Teams Business Operations Manager Relationship Specialty Start Date End Date Kristi Sheehan MD [address] [place] [address] [email or web address] PCP - General Family Medicine 08/24/22 documented as of this encounter Additional Source Comments The information contained in this document represents components of the legal health record. It is not the complete legal health record.[facility]
--- OUTSIDE RECORDS SUMMARY | 2025-04-11 11:14 | XMS_ITS | Encounter Summary ---
Author Organization [facility] Address [address] [place] [address] Phone Care Team Providers Care Assistant Brand Manager Name Role Phone Adriana Monroy MD Primary Care Provider + [phone] Adriana Monroy MD Primary Care Provider + [phone] Kristi Sheehan MD Primary Care Provider + Encounter Details Date Type Department Care Team (Latest Contact Info) Description 05/04/2019 Transcribe Orders [address] [place] [address] Micheal Figueredo MD 100 [facility] 200 [place] [address] Chronic kidney disease, unspecified CKD stage (Primary Dx); Hypertension, unspecified type; Proteinuria, unspecified type; Vitamin D deficiency; Elevated blood pressure reading in office without diagnosis of hypertension Social History Tobacco Use Types Packs/Day Years [...] Description 05/05/2025 8:00 AM EST Office Visit [facility] Orthopedics & Sports Medicine [address] [place] [address] Amita Rivera MD 4 [facility] [place] [address] [email or web address] documented as of this encounter Results * TOTAL PROTEIN CREATININE RATIO, RANDOM URINE (05/04/2019 10:36 AM EST) URINE TOTAL PROTEIN <4.0 mg/dL [facility] URINE CREATININE 27 mg/dL [facility] URINE TP CRE RATIO NOT CALCULATED 0 - 0.19 [facility] Urine (Urine) 05/04/2019 10: 36 AM EST 05/04/2019 10:39 AM EST us Micheal Figueredo MD LAB URINE ORDERABLES Fi nal Result [address] [address] * (ABNORMAL) Free T4 (05/04/2019 10:36 AM EST) FREE T4 1.9(H) 0.9 - 1.7 ng/dL [facility] Blood 05/04/2019 10:3 6 AM EST 05/04/2019 10:38 AM EST us Micheal Figueredo MD LAB BLOOD BKR ORDERABLE S Final Result [address] [address] * TSH (05/04/2019 10:36 AM EST) TSH 0.71 0.27 - 4.20 uIU/mL [facility] Blood 05/04/2019 10:3 6 AM EST 05/04/2019 10:38 AM EST us Micheal Figueredo MD LAB BLOOD BKR ORDERABLE S Final Result [facility] [address] [place] [address] * (ABNORMAL) CBC and differential (05/04/2019 10:36 AM EST) WBC 4.16 3.40 - 11.20 K/uL [facility] RBC 4.09 3.80 - 4.80 M/uL [facility] HGB 12.5 12.0 - 15.0 g/dL [facility] HCT 37.3 36.0 - 46.0 % [facility] PLT 182 130 - 400 K/uL [facility] MCV 91.2 79.0 - 98.0 fL [facility] MCH 30.6 27.0 - 34.8 pg [facility] MCHC 33.5 31.5 - 36.0 g/dL [facility] RDW 11.9 10.8 - 14.6 % [facility] MPV 12.4 9.4 - 12.4 fl [facility] NRBC 0.00 0.00 /100 WBCs [facility] ABSOLUTE NRBC 0.00 0.00 K/uL [facility] DIFF METHOD Auto [facility] NEUTS 46.7 45.30 - 77.70 % [facility] LYMPHS 42.5(H) 12.30 - 39.70 % [facility] MONOS 8.4 4.10 - 12.80 % [facility] EOS 1.2 0 - 7.2 % [facility] BASOS 1.0 0 - 2.80 % [facility] Granulocytes, immature (%) 0.2 0.0 - 0.9 % [facility] ABSOLUTE NEUTS 1.94 1.40 - 7.70 K/uL [facility] ABSOLUTE LYMPHS 1.77 0.60 - 3.20 K/uL [facility] ABSOLUTE MONOS 0.35 0.11 - 0.59 K/uL [facility] ABSOLUTE EOS 0.05 0.01 - 0.50 K/uL [facility] ABSOLUTE BASOS 0.04 0.00 - 0.08 K/uL [facility] Granulocytes, immature 0.01 0.00 - 0.05 K/uL [facility] Blood 05/04/2019 10:3 6 AM EST 05/04/2019 10:38 AM EST us Micheal Figueredo MD LAB BLOOD BKR ORDERABLE S Final Result Performing Organization Address [facility]/ZIP Co de Phone Number [address] [address] * Uric acid (05/04/2019 10:36 AM EST) URIC ACID 5.3 2.4 - 7.0 mg/dL [facility] Blood 05/04/2019 10:3 6 AM EST 05/04/2019 10:38 AM EST us Micheal Figueredo MD LAB BLOOD BKR ORDERABLE S Final Result Performing Organization Address [facility] Co de Phone Number [address] [address] * Magnesium (05/04/2019 10:36 AM EST) MAGNESIUM 1.9 1.6 - 2.6 mg/dL [facility] Blood 05/04/2019 10:3 6 AM EST 05/04/2019 10:38 AM EST us Micheal Figueredo MD LAB BLOOD BKR ORDERABLE S Final Result Performing Organization Address [facility] de Phone Number [address] [address] * Parathyroid hormone (PTH) (05/04/2019 10:36 AM EST) PARATHYROID HORMONE 34 15 - 65 pg/mL [facility] Blood 05/04/2019 10:3 6 AM EST 05/04/2019 10:39 AM EST us Micheal Figueredo MD LAB BLOOD BKR ORDERABLE S Final Result [address] [address] * Lipid panel (05/04/2019 10:36 AM EST) HDL 55 mg/dL [facility] Comment: Interpretation <40 mg/dL: Low HDL cholesterol (major risk factor for CHD) Greater than or equal to 60 mg/dL: High HDL cholesterol ( negative risk factor for CHD) HDL - cholesterol is affected by a number of factors, e.g. smoking, excerise, hormones, sex and age. CHOLESTEROL 206 0 - 240 mg/dL [facility] TRIGLYCERIDES 120 30 - 160 mg/dL [facility] LDL 127 50 - 129 mg/dL [facility] Comment: LDL levels in terms of risk for coronary heart disease: <100 mg/dL: Optimal 100-129 mg/dL: Near or above optimal 130-159 mg/dL: Borderline high 160-189 mg/dL: High >190 mg/dL: Very High CARDIAC RISK RATIO 3.7 3.3 - 4.4 C [facility] Blood 05/04/2019 10:3 6 AM EST 05/04/2019 10:38 AM EST us Micheal Figueredo MD LAB BLOOD BKR ORDERABLE S Final Result Performing Organization Address City/[facility]/ZIP Co de Phone Number [address] [address] * (ABNORMAL) 25-OH vitamin D (05/04/2019 10:36 AM EST) 25 [place] VIT D (TOTAL) 24(L) 30 - 60 ng/mL [facility] Blood 05/04/2019 10:3 6 AM EST 05/04/2019 10:38 AM EST Micheal Figueredo MD LAB BLOOD BKR ORDERABLE S Final Result Performing Organization Address City/[facility]/ZIP Co de Phone Number [address] [address] * (ABNORMAL) Renal panel (05/04/2019 10:36 AM EST) SODIUM 141 133 - 146 mmol/L [facility] POTASSIUM 4.2 3.3 - 5.1 mmol/L [facility] CHLORIDE 102 96 - 108 mmol/L [facility] CO2 31 21 - 35 mmol/L [facility] GLUCOSE 81 70 - 99 mg/dL [facility] BUN 22(H) 6 - 19 mg/dL [facility] CREATININE 0.80 0.5 - 1.5 mg/dL [facility] CALCIUM 9.4 8.4 - 10.3 mg/dL [facility] PHOSPHORUS 3.0 2.7 - 4.5 mg/dL [facility] ALBUMIN 4.2 3.9 - 4.8 g/dL [facility] EGFR 77 >59 mL/min/1.7 3m2 [facility] Comment:If patient is black, multiply result by 1.159. Estimated glomerular filtration rate calculated using the CKD-EPI equation. ANION GAP 12 10 - 20 mmol/L [facility] Blood 05/04/2019 10:3 6 AM EST 05/04/2019 10:38 AM EST us Micheal Figueredo MD LAB BLOOD BKR ORDERABLE S Final Result [facility] [address] [place] [address] documented in this encounter Visit Diagnoses Diagnosis Chronic kidney disease, unspecified CKD stage- Primary Hypertension, unspecified type Proteinuria, unspecified type Vitamin D deficiency Elevated blood pressure reading in office without diagnosis of hypertension documented in this encounter Additional Health Concerns Infection Onset Date Last Indicated Resolved Time CoV-Risk 02/24/2022 02/24/2022 03/07/2022 1:23 AM EDT documented as of this encounter Care Teams Assistant Brand Manager Relationship Specialty Start Date End Date Adriana Monroy MD [address] [place] [address] [email or web address] PCP - General Internal Medicine 04/03/17 05/31/21 Adriana Monroy MD [address] [place] [address] [email or web address] PCP - General Internal Medicine 06/01/21 08/23/22 Kristi Sheehan MD [address] [place] [address] [email or web address] PCP - General Family Medicine 08/24/22 documented as of this encounter Additional Source Comments The information contained in this document represents components of the legal health record. It is not the complete legal health record.[facility]
--- OUTSIDE RECORDS SUMMARY | 2025-04-11 11:14 | XMS_ITS | Encounter Summary ---
Author Organization [facility] Address [address] [place] [phone] Phone Care Team Providers Care Health Care Technician Name Role Phone Adriana Monroy MD Primary Care Provider + [phone] Adriana Monroy MD Primary Care Provider + [phone] Kristi Sheehan MD Primary Care Provider + Encounter Details Date Type Department Care Team (Latest Contact Info) Description 02/10/2019 Transcribe Orders [address] [place] [address] Adriana Monroy MD [address] [place] [address] [email or web address] Hyperlipidemia, unspecified hyperlipidemia type (Primary Dx); Hypertension, unspecified type; Hypothyroidism, unspecified type Social History Tobacco Use Types Packs/Day Years [...] Description 05/05/2025 8:00 AM EST Office Visit [facility] Orthopedics & Sports Medicine [address] [place] [address] Amita Rivera MD [address] [place] [address] Orthopedics & Sports Medicine, [facility] [address] documented as of this encounter Results * TSH with reflex (02/10/2019 7:12 AM EDT) TSH 0.70 0.27 - 4.20 uIU/mL [facility] Blood 02/10/2019 7:12 AM EDT 02/10/2019 7:17 AM EDT us Adriana Monroy MD LAB BLOOD BKR ORDERABLES Fin al Result Performing Organization Address City/State/[facility] Co de Phone Number [facility] [address] [place] [address] * (ABNORMAL) Comprehensive metabolic panel (02/10/2019 7:12 AM EDT) SODIUM 144 133 - 146 mmol/L [facility] POTASSIUM 4.4 3.3 - 5.1 mmol/L [facility] CHLORIDE 104 96 - 108 mmol/L [facility] CO2 31 21 - 35 mmol/L [facility] BUN 17 6 - 19 mg/dL [facility] CREATININE 0.70 0.5 - 1.5 mg/dL [facility] GLUCOSE 92 70 - 99 mg/dL [facility] ALBUMIN 4.1 3.9 - 4.8 g/dL [facility] TOTAL PROTEIN 6.4(L) 6.5 - 8.0 g/dL [facility] CALCIUM 9.7 8.4 - 10.3 mg/dL [facility] ALKALINE PHOSPHATASE 50 39 - 117 U/L [facility] TOTAL BILIRUBIN 0.5 0.0 - 1.2 mg/dL [facility] AST 26 0 - 37 U/L [facility] ALT 13 0 - 40 U/L [facility] GLOBULIN 2.3 1 - 4.8 g/dL [facility] EGFR 92 >59 mL/min/1.7 3m2 [facility] Comment:If patient is black, multiply result by 1.159. Estimated glomerular filtration rate calculated using the CKD-EPI equation. ANION GAP 13 10 - 20 mmol/L [facility] Blood 02/10/2019 7:12 AM EDT 02/10/2019 7:17 AM EDT Adriana Monroy MD LAB BLOOD BKR ORDERABLES Fin al Result Performing Organization Address City/[facility]/ZIP Co de Phone Number [address] [address] * (ABNORMAL) Lipid panel (02/10/2019 7:12 AM EDT) HDL 47 mg/dL [facility] Comment: Interpretation <40 mg/dL: Low HDL cholesterol (major risk factor for CHD) Greater than or equal to 60 mg/dL: High HDL cholesterol ( negative risk factor for CHD) HDL - cholesterol is affected by a number of factors, e.g. smoking, excerise, hormones, sex and age. CHOLESTEROL 227 0 - 240 mg/dL [facility] TRIGLYCERIDES 141 30 - 160 mg/dL [facility] LDL 152(H) 50 - 129 mg/dL [facility] Comment: LDL levels in terms of risk for coronary heart disease: <100 mg/dL: Optimal 100-129 mg/dL: Near or above optimal 130-159 mg/dL: Borderline high 160-189 mg/dL: High >190 mg/dL: Very High CARDIAC RISK RATIO 4.8(H) 3.3 - 4.4 [facility] Blood 02/10/2019 7:12 AM EDT 02/10/2019 7:17 AM EDT us Adriana Monroy MD LAB BLOOD BKR ORDERABLES Fin al Result Performing Organization Address City/[facility]/ZIP Co de Phone Number [address] [address] documented in this encounter Visit Diagnoses Diagnosis Hyperlipidemia, unspecified hyperlipidemia type- Primary Hypertension, unspecified type Hypothyroidism, unspecified type documented in this encounter Additional Health Concerns Infection Onset Date Last Indicated Resolved Time CoV-Risk 02/24/2022 02/24/2022 03/07/2022 1:23 AM EDT documented as of this encounter Care Teams Health Care Technician Relationship Specialty Start Date End Date Adriana Monroy MD [address] [place] [phone] PCP - General Internal Medicine 04/03/17 05/31/21 Adriana Monroy MD [address] [place] [address] PCP - General Internal Medicine 06/01/21 08/23/22 Kristi Sheehan MD [address] [place] [address] PCP - General Family Medicine 08/24/22 documented as of this encounter Additional Source Comments The information contained in this document represents components of the legal health record. It is not the complete legal health record.[facility]
--- OUTSIDE RECORDS SUMMARY | 2025-04-11 11:14 | XMS_ITS | Encounter Summary ---
Author Organization [facility] Address [address] [place] [address] Phone Care Team Providers Care Animal Control Specialist Name Role Phone Adriana Monroy MD Primary Care Provider + [phone] Adriana Monroy MD Primary Care Provider + [phone] Kristi Sheehan MD Primary Care Provider + Encounter Details Date Type Department Care Team (Late Contact Info) Description 04/20/2019 Ancillary Orders Virtual Department [address] [place] [address] Adriana Monroy MD [address] [place] [phone] Breast screening Social History Tobacco Use Types Packs/Day Years [...] Description 05/05/2025 8:00 AM EST Office Visit [facility] Orthopedics & Sports Medicine [address] [place] [address] Amita Rivera MD [address] [place] [address] Orthopedics & Sports Medicine, [facility] [place] [address] [email or web address] documented as of this encounter Results * BI MAMMOGRAM SCREENING WITH TOMOSYNTHESIS WITH CAD (BILATERAL) (05/06/2019 2:04 PM EST) Anatomical Region Laterality Modality Breast Left, Breast Right, Breast Bilateral Bila teral Mammography 05/06/2019 3:17 PM EST Impressions 05/06/2019 3:20 PM EST No mammographic evidence of malignancy. BI-RADS CATEGORY: 1 - Negative. DENSITY: There are scattered fibroglandular densities. POS - CDHMAMA Narrative 05/06/2019 3:20 PM EST Standard digital full-field 2-D C view and two-plane tomographic imaging was performed and compared with multiple prior studies, most recently 04/05/2018, with utilization of computer-aided detection. The breasts are composed of scattered fibroglandular densities. The stromal markings are essentially unchanged in overall appearance and distribution. No dominant spiculated mass, suspicious clustered microcalcifications, or focal zone of pathologic skin thickening or retraction are noted to have arisen in the interim. Procedure Note Frankie Pryor MD - 05/06/2019 Standard digital full-field 2-D C view and two-plane tomographic imagingwas performed and compared with multiple prior studies, most [id number], with utilization of computer-aided detection. The breasts are composed of scattered fibroglandular densities. Thestromal markings are essentially unchanged in overall appearance anddistribution. No dominant spiculated mass, suspicious clusteredmicrocalcifications, or focal zone of pathologic skin thickening orretraction are noted to have arisen in the interim. IMPRESSION: No mammographic evidence of malignancy. BI-RADS CATEGORY: 1 - Negative. DENSITY: There are scattered fibroglandular densities. POS - CDHMAMA Adriana Monroy MD IMG MG EXAMS Final Result documented in this encounter Visit Diagnoses Diagnosis Breast screening Breast screening, unspecified Breast screening Breast screening, unspecified documented in this encounter Additional Health Concerns Infection Onset Date Last Indicated Resolved Time CoV-Risk 02/24/2022 02/24/2022 03/07/2022 1:23 AM EDT documented as of this encounter Care Teams Animal Control Specialist Relationship Specialty Start Date End Date Adriana Monroy MD [address] [place] [address] [email or web address] PCP - General Internal Medicine 04/03/17 05/31/21 Adriana Monroy MD [address] [place] [phone] PCP - General Internal Medicine 06/01/21 08/23/22 Kristi Sheehan MD [address] [place] [phone] PCP - General Family Medicine 08/24/22 documented as of this encounter Additional Source Comments The information contained in this document represents components of the legal health record. It is not the complete legal health record.[facility]
--- OUTSIDE RECORDS SUMMARY | 2025-04-11 11:14 | XMS_ITS | Encounter Summary ---
Author Organization [facility] Address [address] [place] [address] Phone Care Team Providers Care Car Wrecker Name Role Phone Adriana Monroy MD Primary Care Provider + [phone] Adriana Monroy MD Primary Care Provider + [phone] Kristi Sheehan MD Primary Care Provider + Encounter Details Date Type Department Care Team (Late st Contact Info) Description 07/13/2017 Procedure Pass [address] [place] [address] Social History Tobacco Use Types Packs/Day Years Used Date Smoking Tobacco: Never Assessed Comments No Sex and Gender Information Value Date Recorded Sex Assigned at Female 11/21/2021 5:09 PM EDT Legal Sex Female 6:22 PM EST Gender Identity Female 11/21/2021 5:09 PM EDT Sexual Orientation Straight 11/21/2021 5: 09 PM EDT documented as of this encounter Last Filed Vital Signs Vital Sign Reading Time Taken Comments Blood Pressure - - Pulse - - Temperature - - Respiratory Rate - - Oxygen Saturation - - Inhaled Oxygen Concentration - - Weight 72.6 kg (160 lb) 07/15/2017 2:32 PM EST Height 172.7 cm (5' 8 ) 07/15/2017 2:32 PM EST Body Mass Index 24.33 07/15/2017 2:32 PM EST documented in this encounter Plan of Treatment Upcoming Encounters Date Type Department Care Team (Late st Contact Info) Description 05/05/2025 8:00 AM EST Office Visit [facility] Orthopedics & Sports Medicine [address] [place] [address] Amita Rivera MD [address] [place] [address] Orthopedics & Sports Medicine, [place] [address] [email or web address] documented as of this encounter Visit Diagnoses Not on filedocumented in this encounter Additional Health Concerns Infection Onset Date Last Indicated Resolved Time CoV-Risk 02/24/2022 02/24/2022 03/07/2022 1:23 AM EDT documented as of this encounter Care Teams Car Wrecker Relationship Specialty Start Date End Date Adriana Monroy MD [address] [place] [phone] [email or web address] PCP - General Internal Medicine 04/03/17 05/31/21 Adriana Monroy MD [address] [place] [phone] PCP - General Internal Medicine 06/01/21 08/23/22 Kristi Sheehan MD [address] [place] [phone] PCP - General Family Medicine 08/24/22 documented as of this encounter Additional Source Comments The information contained in this document represents components of the legal health record. It is not the complete legal health record.[facility]
--- OUTSIDE RECORDS SUMMARY | 2025-04-11 11:14 | XMS_ITS | Encounter Summary ---
Author Organization [facility] Address [address] [place] [address] Phone Care Team Providers Care Visual C Developer Name Role Phone Adriana Monroy MD Primary Care Provider + [phone] Adriana Monroy MD Primary Care Provider + [phone] Kristi Sheehan MD Primary Care Provider + Encounter Details Date Type Department Care Team (Latest Contact Info) Description 12/23/2017 Ancillary Orders Virtual Department 30 [place] [address] Adriana Monroy MD [address] [place] [address] [email or web address] Early menopause; Symptomatic postprocedural ovarian failure Social History Tobacco Use Types Packs/Day Years [...] Description 05/05/2025 8:00 AM EST Office Visit [facility] Orthopedics & Sports Medicine [address] [place] [address] Amita Rivera MD [address] [place] [address] Orthopedics & Sports Medicine, [place] [address] [email or web address] documented as of this encounter Results * BD DXA AXIAL (SPINE) WITH HIP (01/07/2018 2:51 PM EDT) Anatomical Region Laterality Modality Bone Density Bone Density 01/07/2018 2:56 PM EDT Impressions 01/07/2018 2:59 PM EDT Normal bone mineral density at all 3 sites assessed. S/S: Estrogen deficiency, bone density screening, height loss POS - [id number] Narrative 01/07/2018 2:59 PM EDT This is a 62-year-old postmenopausal patient with 3/4 inch of height loss reported.. Evaluation of the lumbar spine and both hips is obtained and appears appropriate. The lumbar spine from L1 through L4 discloses a total bone mineral density of 1.177 g/cm2 with a T-score of 1.2. This is in the normal range. The right hip has a total bone mineral density of 1.081 g/cm2 with a T-score of 1.1 this is in the normal range. The left hip has a total bone mineral density of 1.112 g/cm2 for a T-score of 1.4. This is in the normal range. Procedure Note Carter Araujo MD - 01/07/2018 This is a 62-year-old postmenopausal patient with 3/4 inch of height lossreported.. Evaluation of the lumbar spine and both hips is obtained and appearsappropriate. The lumbar spine from L1 through L4 discloses a total bone mineral densityof 1.177 g/cm2 with a T-score of 1.2. This is in the normal range. The right hip has a total bone mineral density of 1.081 g/cm2 with aT-score of 1.1 this is in the normal range. The left hip has a total bone mineral density of 1.112 g/cm2 for a T-scoreof 1.4. This is in the normal range. IMPRESSION: Normal bone mineral density at all 3 sites assessed. S/S: Estrogen deficiency, bone density screening, height loss POS - [id number] Adriana Monroy MD IMG BD BONE DENSITY DEXA Fin al Result documented in this encounter Visit Diagnoses Diagnosis Early menopause Premature menopause Symptomatic postprocedural ovarian failure Early menopause Premature menopause Symptomatic postprocedural ovarian failure documented in this encounter Additional Health Concerns Infection Onset Date Last Indicated Resolved Time CoV-Risk 02/24/2022 02/24/2022 03/07/2022 1:23 AM EDT documented as of this encounter Care Teams Visual C Developer Relationship Specialty Start Date End Date Adriana Monroy MD [address] [place] [address] [email or web address] PCP - General Internal Medicine 04/03/17 05/31/21 Adriana Monroy MD [address] [place] [phone] PCP - General Internal Medicine 06/01/21 08/23/22 Kristi Sheehan MD [address] [place] [phone] PCP - General Family Medicine 08/24/22 documented as of this encounter Additional Source Comments The information contained in this document represents components of the legal health record. It is not the complete legal health record.[facility]
--- OUTSIDE RECORDS SUMMARY | 2025-04-11 11:14 | XMS_ITS | Encounter Summary ---
Author Organization [facility] Address [address] [place] [address] Phone Care Team Providers Care Robotics Engineer Name Role Phone Adriana Monroy MD Primary Care Provider [phone] Adriana Monroy MD Primary Care Provider [phone] Kristi Sheehan MD Primary Care Provider + Encounter Details Date Type Department Care Team (Late st Contact Info) Description 01/08/2018 Ancillary Orders Virtual Department 30 [place] [address] Adriana Monroy MD [address] [place] [phone] [email or web address] Breast screening Social History Tobacco Use Types [...] Description 05/05/2025 8:00 AM EST Office Visit [facility] Orthopedics & Sports Medicine [address] [place] [address] [phone] Amita Rivera MD [address] [place] [address] Orthopedics & Sports Medicine, [facility]. [place], [place] [phone] documented as of this encounter Results * BI MAMMOGRAM SCREENING WITH TOMOSYNTHESIS WITH CAD (BILATERAL) (04/05/2018 11:18 AM EST) Anatomical Region Laterality Modality Breast Left, Breast Right, Breast Bilateral Bila teral Mammography 04/05/2018 1:12 PM EST Impressions 04/05/2018 1:14 PM EST No findings suspicious for malignancy are identified. In the absence of a worrisome palpable abnormality, annual screening mammography is recommended. BI-RADS CATEGORY: 1 - Negative. DENSITY: There are scattered fibroglandular densities. POS CDHMAMA Narrative 04/05/2018 1:14 PM EST COMPARISON: 03/15/2012 through 04/03/2017 Bilateral 3-D tomosynthesis with 2-D reconstructions in the CC and MLO projection. Computer-aided detection system also utilized. No new mass, asymmetry, architectural distortion or suspicious calcifications have become apparent on either side. Procedure Note Reggie Frederick MD - 04/05/2018 COMPARISON: 03/15/2012 through 04/03/2017 Bilateral 3-D tomosynthesis with 2-D reconstructions in the CC and MLOprojection. Computer-aided detection system also utilized. No new mass, asymmetry, architectural distortion or suspiciouscalcifications have become apparent on either side. IMPRESSION: No findings suspicious for malignancy are identified. In the absence of aworrisome palpable abnormality, annual screening mammography isrecommended. BI-RADS CATEGORY: 1 - Negative. DENSITY: There are scattered fibroglandular densities. POS CDHMAMA Adriana Monroy MD IMG MG EXAMS Final Result documented in this encounter Visit Diagnoses Diagnosis Breast screening Breast screening, unspecified Breast screening Breast screening, unspecified documented in this encounter Additional Health Concerns Infection Onset Date Last Indicated Resolved Time CoV-Risk 02/24/2022 02/24/2022 03/07/2022 1:23 AM EDT documented as of this encounter Care Teams Robotics Engineer Relationship Specialty Start Date End Date Monroy, Adriana J, MD [address] [place] [phone] [email or web address] PCP - General Internal Medicine 04/03/17 05/31/21 Adriana Monroy MD [address] [place] [phone] [email or web address] PCP - General Internal Medicine 06/01/21 08/23/22 Kristi Sheehan MD [address] [place] [address] [email or web address] PCP - General Family Medicine 08/24/22 documented as of this encounter Additional Source Comments The information contained in this document represents components of the legal health record. It is not the complete legal health record.[facility]
--- OUTSIDE RECORDS SUMMARY | 2025-04-11 11:14 | XMS_ITS | Encounter Summary ---
Author Organization [facility] Address [address] [place] [address] Phone Care Team Providers Care Survey Interviewer Name Role Phone Adriana Monroy MD Primary Care Provider + [phone] Adriana Monroy MD Primary Care Provider + [phone] Kristi Sheehan MD Primary Care Provider + Encounter Details Date Type Department Care Team (Late st Contact Info) Description 12/18/2017 Transcribe Orders [address] [place] [address] Adriana Monroy MD [address] [place] [address] [email or web address] Screening for lipoid disorders (Primary Dx); Hypothyroidism, unspecified type Social History Tobacco Use [...] Description 05/05/2025 8:00 AM EST Office Visit [facility] Orthopedics & Sports Medicine [address] [place] [address] [phone] Amita Rivera MD [address] [place] [address] Orthopedics & Sports Medicine, [facility]. [place], [place] [phone] [email or web address] documented as of this encounter Results * TSH (12/18/2017 7:03 AM EDT) TSH 3.16 0.27 - 4.20 uIU/mL [facility] Blood 12/18/2017 7:03 AM EDT 12/18/2017 7:11 AM EDT Adriana Monroy MD LAB BLOOD BKR ORDERABLES Fin al Result Performing Organization Address City/[facility] Co de Phone Number [address] [address] * (ABNORMAL) Lipid panel (12/18/2017 7:03 AM EDT) HDL 47 mg/dL [facility] Comment: Interpretation: Risk Level Females Decreased >55mg/dL Average 50-55 mg/dL Increased <50 mg/dL CHOLESTEROL 207 0 - 240 mg/dL [facility] TRIGLYCERIDES 112 30 - 160 mg/dL [facility] LDL 138(H) 50 - 129 mg/dL [facility] Comment: LDL levels in terms of risk for coronary heart disease: <100 mg/dL: Optimal 100-129 mg/dL: Near or above optimal 130-159 mg/dL: Borderline high 160-189 mg/dL: High >190 mg/dL: Very High CARDIAC RISK RATIO 4.4 3.3 - 4.4 C [facility] Blood 12/18/2017 7:03 AM EDT 12/18/2017 7:11 AM EDT Adriana Monroy MD LAB BLOOD BKR ORDERABLES Fin al Result Performing Organization Address [facility]/ZIP Co de Phone Number [address] [address] documented in this encounter Visit Diagnoses Diagnosis Screening for lipoid disorders- Primary Hypothyroidism, unspecified type documented in this encounter Additional Health Concerns Infection Onset Date Last Indicated Resolved Time CoV-Risk 02/24/2022 02/24/2022 03/07/2022 1:23 AM EDT documented as of this encounter Care Teams Survey Interviewer Relationship Specialty Start Date End Date Adriana Monroy MD [address] [place] [phone] [email or web address] PCP - General Internal Medicine 04/03/17 05/31/21 Adriana Monroy MD [address] [place] [phone] PCP - General Internal Medicine 06/01/21 08/23/22 Kristi Sheehan MD [address] [place] [phone] PCP - General Family Medicine 08/24/22 documented as of this encounter Additional Source Comments The information contained in this document represents components of the legal health record. It is not the complete legal health record.[facility]
--- OUTSIDE RECORDS SUMMARY | 2025-04-11 11:14 | XMS_ITS | Encounter Summary ---
Author Organization [facility] Address [address] [place] [address] Phone Care Team Providers Care Regulatory Scientist Name Role Phone Kristi Sheehan MD Primary Care Provider + Encounter Details Date Type Department Care Team ([facility] st Contact Info) Description 02/27/2023 Transcribe Orders Virtual Department 30 [place] [address] Kristi Sheehan MD [address] [place] [phone] [email or web address] Breast screening (Primary Dx) Social History Tobacco Use Types [...] Description 05/05/2025 8:00 AM EST Office Visit [facility] Orthopedics & Sports Medicine [address] [place] [address] Amita Rivera MD [address] [place] [address] Orthopedics & Sports Medicine, [facility] [place] [address] documented as of this encounter Results * BI MAMMOGRAM SCREENING WITH TOMOSYNTHESIS WITH CAD (BILATERAL) (05/19/2023 8:49 AM EST) Anatomical Region Laterality Modality Breast Left, Breast Right, Breast Bilateral Bila teral Mammography 05/22/2023 5:37 PM EST Impressions 05/25/2023 3:33 PM EST No mammographic signs of malignancy. Annual screening is recommended. BI-RADS CATEGORY: 2 - Benign finding. DENSITY: There are scattered fibroglandular densities. Narrative 05/25/2023 3:33 PM EST Bilateral mammography is performed in conjunction with computed aided detection. 3-D tomography along with 2-D C view imaging was also performed. Comparison made to previous dated as far back as 04/03/2017 and as recent as 05/15/2022. No suspicious masses, areas of architectural distortion or suspicious microcalcifications. Few diffuse associated bilateral microcalcifications with benign characteristics are stable. Procedure Note Agustin Bran MD - 05/25/2023 Bilateral mammography is performed in conjunction with computed aideddetection. 3-D tomography along with 2-D C view imaging was alsoperformed. Comparison made to previous dated as far back as 04/03/2017 andas recent as 05/15/2022. No suspicious masses, areas of architectural distortion or suspiciousmicrocalcifications. Few diffuse associated bilateral microcalcificationswith benign characteristics are stable. IMPRESSION: No mammographic signs of malignancy. Annual screening is recommended. BI-RADS CATEGORY: 2 - Benign finding. DENSITY: There are scattered fibroglandular densities. us Kristi Sheehan MD IMG MG EXAMS Final Re sult documented in this encounter Visit Diagnoses Diagnosis Breast screening- Primary Breast screening, unspecified Breast screening Breast screening, unspecified documented in this encounter Additional Health Concerns Assessment Noted Time PHQ-2 Depression Total Score: 0 11/22/19 22 4:46 PM EDT documented as of this encounter Care Teams Regulatory Scientist Relationship Specialty Start Date End Date Kristi Sheehan MD [address] [place] [address] [email or web address] PCP - General Family Medicine 08/24/22 documented as of this encounter Additional Source Comments The information contained in this document represents components of the legal health record. It is not the complete legal health record.[facility]
--- OUTSIDE RECORDS SUMMARY | 2025-04-11 11:14 | XMS_ITS | Encounter Summary ---
Author Organization [facility] Address [address] [address] Phone Care Team Providers Care Power Supply Engineer Name Role Phone Kristi Sheehan MD Primary Care Provider + Encounter Details Date Type Department Care Team (Late st Contact Info) Description 09/15/2024 Procedure Pass [facility] Endoscopy Admitting Dept Virtual Department 30 [place] [address] Social History Tobacco Use Types Packs/Day Years [...] with a working camera? Not on file Intimate Partner Violence Answer Date R ecorded Are you denied basic needs s uch as food, clothing, or medical care? No 09/15/2024 In the past 12 months have y ou been in a relationship with a person who hurts, threatens, or tries to control you? No 09/15/2024 Are you denied basic needs s uch as food, clothing, or medical care? No 09/15/2024 In the past 12 months have y ou been in a relationship with a person who hurts, threatens, or tries to control you? No 09/15/2024 Comments No Sex and Gender Information Value [...] Upcoming Encounters Date Type Department Care Team ([facility] st Contact Info) Description 05/05/2025 8:00 AM EST Office Visit [facility] Orthopedics & Sports Medicine [address] [place] [address] Amita Rivera MD [address] [place] [address] Orthopedics & Sports Medicine, [facility] [place] [address] documented as of this encounter Visit Diagnoses Not on filedocumented in this encounter Additional Health Concerns Assessment Noted Time PHQ-2 Depression Total Score: 0 11/22/19 22 4:46 PM EDT documented as of this encounter Care Teams Power Supply Engineer Relationship Specialty Start Date End Date Kristi Sheehan MD [address] [place] [phone] PCP - General Family Medicine 08/24/22 documented as of this encounter Additional Source Comments The information contained in this document represents components of the legal health record. It is not the complete legal health record.[facility]
--- OUTSIDE RECORDS SUMMARY | 2025-04-11 11:14 | XMS_ITS | Encounter Summary ---
Author Organization [facility] Address [address] [place] [address] Phone Care Team Providers Care Watch Train Assembler Name Role Phone Adriana Monroy MD Primary Care Provider + [phone] Adriana Monroy MD Primary Care Provider + [phone] Kristi Sheehan MD Primary Care Provider + Encounter Details Date Type Department Care Team (Late Contact Info) Description 07/08/2019 Ancillary Orders [facility], X-Ray - [address] [place] [address] Adriana Monroy MD [address] [place] [phone] [email or web address] Pain Social History Tobacco Use Types Packs/Day Years [...] Description 05/05/2025 8:00 AM EST Office Visit [facility] Orthopedics & Sports Medicine [address] [place] [address] Amita Rivera MD [address] [place] [address] Orthopedics & Sports Medicine, [facility] [place] [address] documented as of this encounter Results * XR SHOULDER 2 VIEWS (LEFT) (07/08/2019 6:51 PM EST) Anatomical Region Laterality Modality Shoulder Left Radiographic Brissa ging 07/08/2019 7:02 PM EST Impressions 07/08/2019 7:04 PM EST 1. No evidence of rotator cuff calcific tendinopathy. 2. Mild AC joint osteoarthritis. POS - [id number] Narrative 07/08/2019 7:04 PM EST HISTORY: As above. No trauma. COMPARISON: None. LEFT SHOULDER RADIOGRAPH FINDINGS: Four views obtained. No acute fracture or malalignment. Mild acromioclavicular joint space narrowing and spurring. Glenohumeral joint space is preserved. No bone lesions. No rotator cuff calcifications. Imaged left lung is clear. Procedure Note Vitor Feng MD - 07/08/2019 HISTORY: As above. No trauma. COMPARISON: None. LEFT SHOULDER RADIOGRAPH FINDINGS: Four views obtained. No acute fracture or malalignment. Mild acromioclavicular joint spacenarrowing and spurring. Glenohumeral joint space is preserved. No bonelesions. No rotator cuff calcifications. Imaged left lung is clear. IMPRESSION: 1. No evidence of rotator cuff calcific tendinopathy. 2. Mild AC joint osteoarthritis. POS - [id number] Adriana Monroy MD IMG XR UPPER EXTREMITY Final Result documented in this encounter Visit Diagnoses Diagnosis Pain Generalized pain Pain Generalized pain documented in this encounter Additional Health Concerns Infection Onset Date Last Indicated Resolved Time CoV-Risk 02/24/2022 02/24/2022 03/07/2022 1:23 AM EDT documented as of this encounter Care Teams Watch Train Assembler Relationship Specialty Start Date End Date Adriana Monroy MD [address] [place] [phone] [email or web address] PCP - General Internal Medicine 04/03/17 05/31/21 Adriana Monroy MD [address] [place] [phone] [email or web address] PCP - General Internal Medicine 06/01/21 08/23/22 Kristi Sheehan MD [address] [place] [address] [email or web address] PCP - General Family Medicine 08/24/22 documented as of this encounter Additional Source Comments The information contained in this document represents components of the legal health record. It is not the complete legal health record.[facility]
--- OUTSIDE RECORDS SUMMARY | 2025-04-11 11:14 | XMS_ITS | Encounter Summary ---
Author Organization [facility] Address [address] [place] [address] Phone Care Team Providers Care Financial Services Education Consultant Name Role Phone Adriana Monroy MD Primary Care Provider + [phone] Adriana Monroy MD Primary Care Provider + [phone] Kristi Sheehan MD Primary Care Provider + Encounter Details Date Type Department Care Team (Late Contact Info) Description 04/02/2021 Procedure Pass [facility] - [address] [place] [address] Social History Tobacco Use Types Packs/Day Years [...] 05/05/2025 8:00 AM EST Office Visit [facility] Orthopedics & Sports Medicine [address] [place] [address] [phone] Amita Rivera MD [address] [place] [address] Orthopedics & Sports Medicine, [place] [address] documented as of this encounter Visit Diagnoses Not on filedocumented in this encounter Additional Health Concerns Infection Onset Date Last Indicated Resolved Time CoV-Risk 02/24/2022 02/24/2022 03/07/2022 1:23 AM EDT documented as of this encounter Care Teams Financial Services Education Consultant Relationship Specialty Start Date End Date Adriana Monroy MD [address] [place] [phone] PCP - General Internal Medicine 04/03/17 05/31/21 Adriana Monroy MD [address] [place] [address] PCP - General Internal Medicine 06/01/21 08/23/22 Kristi Sheehan MD [address] [place] [address] PCP - General Family Medicine 08/24/22 documented as of this encounter Additional Source Comments The information contained in this document represents components of the legal health record. It is not the complete legal health record.[facility]
--- OUTSIDE RECORDS SUMMARY | 2025-04-11 11:14 | XMS_ITS | Encounter Summary ---
Author Organization [facility] Address [address] [facility] [address] [place] [address] Phone Care Team Providers Care Baker Paint Name Role Phone Kristi Sheehan MD Primary Care Provider + Encounter Details Date Type Department Care Team ([facility] st Contact Info) Description 03/02/2025 Transcribe Orders Virtual Department [address] [place] [address] Kristi Sheehan MD [address] [place] [phone] [email or web address] Social History Tobacco Use Types Packs/Day Years [...] Upcoming Encounters Date Type Department Care Team ([facility] st Contact Info) Description 05/05/2025 8:00 AM EST Office Visit [facility] Orthopedics & Sports Medicine [address] [place] [phone] Amita Rivera MD [address] [place] [address] Orthopedics & Sports Medicine, [place] [address] documented as of this encounter Visit Diagnoses Not on filedocumented in this encounter Additional Health Concerns Assessment Noted Time PHQ-2 Depression Total Score: 0 11/22/19 22 4:46 PM EDT documented as of this encounter Care Teams Baker Paint Relationship Specialty Start Date End Date Kristi Sheehan MD [address] [place] [address] PCP - General Family Medicine 08/24/22 documented as of this encounter Additional Source Comments The information contained in this document represents components of the legal health record. It is not the complete legal health record.[facility]
--- OUTSIDE RECORDS SUMMARY | 2025-04-11 11:14 | XMS_ITS | Data Portability ---
Author Organization [place] [facility], Allergy Address [address] [place] [phone] Care Team Providers Care Driver'S License Reviewing Officer Name Role Phone EDGAR YANES Primary Care Provider [phone] Assessment Encounter Date Assessment Date Assessment LastModified [...] Allergy Relief 50 mcg/actua tion nasal spray,estephania pension [facility][id number], [address] [facility], [place], [address], 4 09:46:31 Patient TargetsNo targets recorded. Patient InstructionsNo instructions recorded. Reason for Referral None Reported. Problems Name Problem SNOMED Code Status Onset Date Resolution Date Notes Provider Name and Address Organization Details Recorded Time Recurrent acute sinusitis 006366170 Active Shawna beal [place] - [facility] 13:32:59 Deviated nasal septum 899749010 Active Shawna beal [place] - [facility] 13:33:04 Nasal congestion 58904793 Active VALDO RAYO PA-C [address], [phone], [place] - [facility] 09:43:58 Problem Notes None recorded. Procedures Surgical History Date Name Laterality Status Provider Name and Address Organization Details Recorded Time 04/20/20 24 Nasal Endoscopy completed VALDO RAYO PA-C [address] [place] [address], [phone], [place] - [facility] 04/20/2024 10:09:06 11/24/19 24 JMSNasal/Sinus Endoscopy completed Shawna Bello [place] - [facility] 11/24/2023 13:32:53 Hysterectomy completed Gabby Rodriguez [place] [facility] 11/24/2023 13:09:28 Imaging Results None recorded. Procedure Notes None recorded. Medical Equipment None Reported. Allergies Allergen ID Allergen Name Allergen Category Reaction Reaction Severity Criticality Documentation Date Start Date Code Code System Note Provider Name and Address Organization Details Recorded Time 754226 Bactrim medicatio n Not available Not available Not available 11/24/2023 77915 9 RxNorm Gabby beal [place] - [facility] 4 13:08:45 442153 erythromy misael medicatio n Not available Not available Not available 11/24/2023 4053 RxNorm Gabby bealVICKI - [facility] 4 13:08:59 Medications Name Sig Start Date [...] propionate 50 mcg/actuatio n nasal spray,suspen brittney INHALE 2 SPRAYS TO EACH NOSTRIL DAILY FOR SEASONAL ALLERGY CONGESTION 2024 active Not Available Not Available Not Avai lable amoxicillin 875 mg-potassium clavulanate 125 mg tablet [...] Updated DateTime 11/24/2023 171.45 cm 25 kg/m2 60433.96 g Gabby Rodriguez [facility] 11/24/2023 13:08:35 Date Recorded Body height Body mass index (BMI) Body weight Provider Name and Address Organization Details Last Updated DateTime 04/20/2024 171.45 cm 25 kg/m2 21046.96 g Gabby Michael [facility] 04/20/2024 09:18:34 Social History None recorded. Functional Status None recorded. Mental Status None recorded. Family History Nothing Reported. Medical History No medical history recorded. Gynecological HistoryNo gynecological history recorded. Obstetrics History GPAL:G 0 P 0 0 0 0 Past Encounters Encounter ID Performer Location Encounter Start Date Encounter Closed Date Diagnosis/Indication Diagnosis SNOMED-CT Code Diagnosis ICD10 Code Diagnosis IMO Codes Diagnosis Note [id number] SHAWNA BELLO PA-C [facility] [address] [address] 11/24/2023 12:50:08 11/24/2023 13:59:17 Recurrent acute sinusitis 792274550 J01.91 Deviated nasal septum 12 7566865 J34.2 [id number] VALDO RAYO PA-C [facility] [address] [place] [address] 04/20/2024 09:11:30 04/20/2024 10:08:25 Deviated nasal septum 408126589 J34.2 Recurrent acute sinusitis 461199506 J01.91 Nasal congestion 7452844 0 R09.81 Health Concerns Section Related Observation LastModified by Organization Detai ls LastModified Time None Recorded Concern Status LastModified by Organization Details LastModified Time None Recorded Advance Directives Directive None Recorded Payers Insurance Date Sequence Insurance Name Policy Number Policy Mixon Covered Member ID Mixon Member ID Guarantor Name 04/20/2024 1 [facility]: [place] [id number] (MEDICARE REPLACEMENT PPO) [id number] Mariel Salas [id number] Mariel Copeland Josue Notes Date Note Type Note Provider Name and Address Organization Details Recorded Time 11/24/2023 text/html ROS as noted in the [facility] 68 year old female presents today for evaluation of recurrent sinus [...] has not had any imaging to date. Shawna beal [place] - [facility] 11/24/2023 13:36:01 04/20/2024 text/html ROS as noted in the [facility] 69 year old female with allergic rhinitis [...] history of sinus surgery. AURELIO LIND MD [address] [place] [address], [phone], [place] - [facility] 04/20/2024 15:20:08 OBGyn Episode No OBEpisode recorded.
--- OUTSIDE RECORDS SUMMARY | 2025-04-11 11:14 | XMS_ITS | Encounter Summary ---
Author Organization [facility] Address [address] [place] [address] Phone Care Team Providers Care Braiding Operator Name Role Phone Adriana Monroy MD Primary Care Provider + [phone] Adriana Monroy MD Primary Care Provider + [phone] Kristi Sheehan MD Primary Care Provider + Encounter Details Date Type Department Care Team (Late st Contact Info) Description 02/05/2018 Transcribe Orders [address] [place] [address] Adriana Monroy MD [address] [place] [address] [email or web address] Fatigue, unspecified type (Primary Dx) Social History Tobacco Use Types [...] Description 05/05/2025 8:00 AM EST Office Visit [facility] Orthopedics & Sports Medicine [address] [place] [address] [phone] Amita Rivera MD [address] [place] [address] Orthopedics & Sports Medicine, [facility]. [place], [place] [phone] [email or web address] documented as of this encounter Results * Ferritin (02/05/2018 9:20 AM EDT) FERRITIN 98 13 - 150 ug/L [facility] Blood 02/05/2018 9:20 AM EDT 02/05/2018 9:27 AM EDT Adriana Monroy MD LAB BLOOD BKR ORDERABLES Fin al Result [address] [address] * Iron and iron binding capacity (02/05/2018 9:20 AM EDT) IRON 75 30 - 160 ug/dL [facility] IRON BINDING CAPACITY 299 228 - 428 ug/dL [facility] TRANSFERRIN SATURAT. 25 15 - 50 % [facility] Blood 02/05/2018 9:20 AM EDT 02/05/2018 9:27 AM EDT Adriana Monroy MD LAB BLOOD BKR ORDERABLES Fin al Result Performing Organization Address [facility]/ZIP Co de Phone Number [address] [address] * Folate (02/05/2018 9:20 AM EDT) FOLIC ACID 18.5 4.2 - 19.9 ng/mL [facility] Blood 02/05/2018 9:20 AM EDT 02/05/2018 9:27 AM EDT us Adriana Monroy MD LAB BLOOD BKR ORDERABLES Fin al Result Performing Organization Address [facility]/ZIP Co de Phone Number [address] [address] * Vitamin B12 (02/05/2018 9:20 AM EDT) VITAMIN B12 523 232 - 1,245 pg/mL [facility] Blood 02/05/2018 9:20 AM EDT 02/05/2018 9:27 AM EDT us Adriana Monroy MD LAB BLOOD BKR ORDERABLES Fin al Result Performing Organization Address [facility] Co de Phone Number [address] [address] * TSH (02/05/2018 9:20 AM EDT) TSH 3.71 0.27 - 4.20 uIU/mL [facility] Blood 02/05/2018 9:20 AM EDT 02/05/2018 9:27 AM EDT us Adriana Monroy MD LAB BLOOD BKR ORDERABLES Fin al Result Performing Organization Address [facility] de Phone Number [address] [address] * Hemoglobin A1c (02/05/2018 9:20 AM EDT) HEMOGLOBIN A1C 5.7 4.3 - 5.8 % [facility] Blood 02/05/2018 9:20 AM EDT 02/05/2018 9:27 AM EDT us Adriana Monroy MD LAB BLOOD BKR ORDERABLES Fin al Result Performing Organization Address [facility] Co de Phone Number [address] [address] * Uric acid (02/05/2018 9:20 AM EDT) URIC ACID 6.4 2.4 - 7.0 mg/dL [facility] Blood 02/05/2018 9:20 AM EDT 02/05/2018 9:27 AM EDT us Adriana Monroy MD LAB BLOOD BKR ORDERABLES Fin al Result [address] [address] * (ABNORMAL) Triglycerides (02/05/2018 9:20 AM EDT) TRIGLYCERIDES 173(H) 30 - 160 mg/dL [facility] Blood 02/05/2018 9:20 AM EDT 02/05/2018 9:27 AM EDT Adriana Monroy MD LAB BLOOD BKR ORDERABLES Fin al Result Performing Organization Address [facility] Co de Phone Number [address] [address] * Phosphorus (02/05/2018 9:20 AM EDT) PHOSPHORUS 4.0 2.7 - 4.5 mg/dL [facility] Blood 02/05/2018 9:20 AM EDT 02/05/2018 9:27 AM EDT Adriana Monroy MD LAB BLOOD BKR ORDERABLES Fin al Result Performing Organization Address [facility] Co de Phone Number [address] [address] * GGT (Gamma glutamyl transferase) (02/05/2018 9:20 AM EDT) GGT 17 7 - 33 U/L [facility] Blood 02/05/2018 9:20 AM EDT 02/05/2018 9:27 AM EDT Adriana Monroy MD LAB BLOOD BKR ORDERABLES Fin al Result Performing Organization Address [facility]/ZIP Co de Phone Number [address] [address] * Cholesterol, total (02/05/2018 9:20 AM EDT) CHOLESTEROL 213 0 - 240 mg/dL [facility] Blood 02/05/2018 9:20 AM EDT 02/05/2018 9:27 AM EDT us Adriana Monroy MD LAB BLOOD ORDERABLES Final R esult [address] [address] * (ABNORMAL) Comprehensive metabolic panel (02/05/2018 9:20 AM EDT) SODIUM 144 133 - 146 mmol/L [facility] POTASSIUM 4.5 3.3 - 5.1 mmol/L [facility] CHLORIDE 102 96 - 108 mmol/L [facility] CO2 29 21 - 35 mmol/L [facility] BUN 20(H) 6 - 19 mg/dL [facility] CREATININE 0.80 0.5 - 1.5 mg/dL [facility] GLUCOSE 94 70 - 99 mg/dL [facility] ALBUMIN 4.2 3.9 - 4.8 g/dL [facility] TOTAL PROTEIN 6.8 6.5 - 8.0 g/dL [facility] CALCIUM 9.5 8.4 - 10.3 mg/dL [facility] ALKALINE PHOSPHATASE 52 39 - 117 U/L [facility] TOTAL BILIRUBIN 0.4 0.0 - 1.2 mg/dL [facility] AST 24 0 - 37 U/L [facility] ALT 19 0 - 40 U/L [facility] GLOBULIN 2.6 1 - 4.8 g/dL [facility] EGFR 78 >59 mL/min/1.7 3m2 [facility] Comment:If patient is black, multiply result by 1.159. Estimated glomerular filtration rate calculated using the CKD-EPI equation. ANION GAP 18 10 - 20 mmol/L [facility] Blood 02/05/2018 9:20 AM EDT 02/05/2018 9:27 AM EDT us Adriana Monroy MD LAB BLOOD BKR ORDERABLES Fin al Result Performing Organization Address City/[facility]/ZIP Co de Phone Number [address] [address] documented in this encounter Visit Diagnoses Diagnosis Fatigue, unspecified type- Primary documented in this encounter Additional Health Concerns Infection Onset Date Last Indicated Resolved Time CoV-Risk 02/24/2022 02/24/2022 03/07/2022 1:23 AM EDT documented as of this encounter Care Teams Braiding Operator Relationship Specialty Start Date End Date Adriana Monroy MD [address] [place] [address] [email or web address] PCP - General Internal Medicine 04/03/17 05/31/21 Adriana Monroy MD [address] [place] [address] [email or web address] PCP - General Internal Medicine 06/01/21 08/23/22 Kristi Sheehan MD [address] [place] [phone] [email or web address] PCP - General Family Medicine 08/24/22 documented as of this encounter Additional Source Comments The information contained in this document represents components of the legal health record. It is not the complete legal health record.[facility]
--- OUTSIDE RECORDS SUMMARY | 2025-04-11 11:14 | XMS_ITS | Encounter Summary ---
Author Organization [facility] Address [address] [facility] [address] [place] [address] Phone Care Team Providers Care Gold Miner Blasting Name Role Phone Kristi Sheehan MD Primary Care Provider + Encounter Details Date Type Department Care Team (Latest Contact Info) Description 08/19/2023 Transcribe Orders Virtual Department [address] [place] [address] Anna Diaz PA [address] [facility] 1 [place] [address] Encounter for screening for osteoporosis (Primary Dx) Social History Tobacco Use Types [...] Description 05/05/2025 8:00 AM EST Office Visit [facility] Orthopedics & Sports Medicine [address] [place] [phone] Amita Rivera MD [address] [place] [address] Orthopedics & Sports Medicine, [facility] [place] [address] [email or web address] documented as of this encounter Results * BD DXA AXIAL (SPINE) WITH HIP (10/19/2023 9:07 AM EDT) Anatomical Region Laterality Modality Bone Density Bone Density 10/22/2023 10:5 3 AM EDT Impressions 10/22/2023 8:18 PM EDT Interval decrease in bone mineral density, 10.8% in the lumbar spine and 7.0% in the left total hip as compared to the baseline study. Bone mineral density, however, remains within normal limits. ATTESTATION: I, Александр Porras as teaching physician, have reviewed the images for this case and if necessary edited the report originally created by Dario Mcfarland. Narrative 10/22/2023 8:18 PM EDT BD DXA AXIAL (SPINE) WITH HIP INDICATION: Screening for osteoporosis. COMPARISON: Baseline study 01/07/2018. Evaluation of the lumbar spine and left hip are obtained and appears technically adequate. The lumbar spine from L1 through L4 discloses a total bone mineral density of 1.050 g/cm2 T-score: 0.0 Z-Score: 2.1 WHO Classification: Normal Change from baseline study: -10.8% The left hip (total) has a total bone mineral density of 1.034 g/cm2 T-score: 0.8 Z-Score: 2.2 WHO Classification: Normal Change from baseline study: -7.0% The left hip (neck) has a total bone mineral density of 0.849 g/cm2 T-score: 0.0 Z-Score: 1.8 FRAX:10-Year Fracture Risk Major Osteoporotic Fracture: 7.3% Hip Fracture: 0.4% Procedure Note Александр Porras MD - 10/22/2023 BD DXA AXIAL (SPINE) WITH HIP INDICATION: Screening for osteoporosis. COMPARISON: Baseline study 01/07/2018. Evaluation of the lumbar spine and left hip are obtained and appearstechnically adequate. The lumbar spine from L1 through L4 discloses a total bone mineral densityof 1.050 g/cm2 T-score: 0.0 Z-Score: 2.1 WHO Classification: Normal Change from baseline study: -10.8% The left hip (total) has a total bone mineral density of 1.034 g/cm2 T-score: 0.8 Z-Score: 2.2 WHO Classification: Normal Change from baseline study: -7.0% The left hip (neck) has a total bone mineral density of 0.849 g/cm2 T-score: 0.0 Z-Score: 1.8 FRAX:10-Year Fracture Risk Major Osteoporotic Fracture: 7.3% Hip Fracture: 0.4% IMPRESSION: Interval decrease in bone mineral density, 10.8% in the lumbar spine and7.0% in the left total hip as compared to the baseline study. Bone mineraldensity, however, remains within normal limits. ATTESTATION: I, Александр Porras as teaching physician, have reviewed theimages for this case and if necessary edited the report originally createdby Dario Mcfarland. Anna BUTT IMG BD BONE DENSITY DEXA Fin al Result documented in this encounter Visit Diagnoses Diagnosis Encounter for screening for osteoporosis- Primary Encounter for screening for osteoporosis documented in this encounter Additional Health Concerns Assessment Noted Time PHQ-2 Depression Total Score: 0 11/22/19 22 4:46 PM EDT documented as of this encounter Care Teams Gold Miner Blasting Relationship Specialty Start Date End Date Kristi Sheehan MD [address] [place] [phone] PCP - General Family Medicine 08/24/22 documented as of this encounter Additional Source Comments The information contained in this document represents components of the legal health record. It is not the complete legal health record.[facility]
--- OUTSIDE RECORDS SUMMARY | 2025-04-11 11:14 | XMS_ITS | Continuity of Care Document ---
Author Organization [facility] Address [address] [facility] [address] [place], [place] Phone [phone] Care Team Providers Care Application Packaging Specialist Name Role Phone Adriana Monroy Care Team Information Receive r SHIVANI Avila M.D. 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 Social History Type Date Description Comments Sex Female Sex Unknown Allergies and adverse reactions Active Allergies Criticality Reaction Severity Comments Date Bactrim Unable to assess criticality 02/04/2018 Medications Active Medications SIG Qnty Indications Order ing Provider Date Rgsxqtdmjd89az Tablets Take 1 Tablet Every Day Unknown Multivitamin WomensChewtabs 1 tab by mouth every day Unknown ProbioticCapsules 1 by mouth every day Unknown BiotinCapsules 1 every day Unknown Cromolyn Sodium4% Solution Instill 1 To 2 Drops In Each Eye 4 To 6 Times Daily If Needed For Juan Unknown Kzvcmcdbl478cqd Tablets 1 by mouth every day 90tabs Adriana Monroy Amlodipine Rmxztxqj5fw Tablets Take 1 Tablet Every Day Unknown Clonidine HCL0.1mg Tablets Take 1 Tablet AT Bedtime Unknown Qogxyaueppeglfpbxbt02.5mg Capsules Take One Capsule Every Day Unknown Olopatadine HCL0.1% Solution Adriana Monroy History Medications Clonidine HCL0.1mg/24HR Patches Weekly Unknown - 02/04/2018 Tobramycin-Dexamethasone0 .3-0.1% Suspension Unknown 0 - 02/04/2018 Vsesrogbiuoqqcuigzq12.5mg Tablets Adriana Monroy - 02/04/2018 Omzgocsavohzyntxcqm31qt Tablets Take 1 Tablet By Mouth Once A Day as Directed Unknown - 02/04/2018 Vkxzlx66% Solution Unknown 0 - 02/04/2018 Premarin0.625mg Tablets Take 1 Tablet By Mouth Every Day Unknown - 02/04/2018 Diclofenac Sodium1% Gel Apply 4 GM To Hi p 2-3 Times Per Day For 10 Days For Itb Syndrome Unknown - 02/04/2018 Triamcinolone Acetonide0.1% Cream Apply To Affected Areas On Abdomen Twice Daily For Itch. Not For Use O Unknown - 02/04/2018
--- OUTSIDE RECORDS SUMMARY | 2025-04-11 11:14 | XMS_ITS | Encounter Summary ---
Author Organization [facility] Address [address] [place] [address] Phone Care Team Providers Care Stock Roller Name Role Phone Adriana Monroy MD Primary Care Provider + [phone] Adriana Monroy MD Primary Care Provider + [phone] Kristi Sheehan MD Primary Care Provider + Encounter Details Date Type Department Care Team (Latest Contact Info) Description 11/10/2017 Transcribe Orders [facility] Phleb Main 30 [place] [address] Micheal Figueredo MD 100 [facility] 200 [place] [address] Essential hypertension, malignant (Primary Dx); Elevated blood pressure reading without diagnosis of hypertension Social History Tobacco [...] Description 05/05/2025 8:00 AM EST Office Visit [facility] Orthopedics & Sports Medicine [address] [place] [address] [phone] Amita Rivera MD [address] [place] [address] Orthopedics & Sports Medicine, [place] [address] [email or web address] documented as of this encounter Results * Metanephrines, plasma (11/10/2017 7:47 AM EDT) METANEPHRINE <0.20 <0.50 nmol/L [facility] LAB MED/PATH SUPERIOR Comment: (NOTE) ADDITIONAL INFORMATION This test was developed and its performance characteristics determined by [facility] in a manner consistent with CLIA requirements. This test has not been cleared or approved by the U.S. Food and Drug Administration. NORMETANEPHRINE 0.26 <0.90 nmol/L [facility] LAB MED/PATH SUPERIOR Blood 11/10/2017 7:47 AM EDT 11/10/2017 8:04 AM EDT Micheal Figueredo MD LAB BLOOD BKR ORDERABLE S Final Result [facility] LAB MED/PATH SUPERIOR [address] [place] [address] * Cortisol AM (11/10/2017 7:47 AM EDT) CORTISOL AM 10.2 6.2 - 19.4 ug/dL [facility] Blood 11/10/2017 7:47 AM EDT 11/10/2017 8:03 AM EDT Micheal Figueredo MD LAB BLOOD BKR ORDERABLE S Final Result [address] [address] * Renin (11/10/2017 7:47 AM EDT) RENIN ACTIVITY 5.4 ng/ml/h [facility] LAB MED/PATH SUPERIOR CHAN Comment: (NOTE) REFERENCE VALUE (Peripheral vein specimen) Na-deplete, upright: Mean: 5.9 Range: 2.9-10.8 Na-replete, upright: Mean: 1.0 Range: < or =0.6-3.0 ADDITIONAL INFORMATION Testing performed by Liquid Chromatography-Tandem Mass Spectrometry (LC-MS/MS). This test was developed and its performance characteristics determined by [facility] in a manner consistent with CLIA requirements. This test has not been cleared or approved by the U.S. Food and Drug Administration. Blood 11/10/2017 7:47 AM EDT 11/10/2017 8:04 AM EDT Micheal Figueredo MD LAB BLOOD ORDERABLES Fi nal Result Performing Organization Address City/[facility] Co de Phone Number [facility]/PATH [facility] [address] [place] [address] * Aldosterone (11/10/2017 7:47 AM EDT) ALDOSTERONE 10 <=21 ng/dL [facility] Comment: (NOTE) ADDITIONAL INFORMATION Reference range for patients 11 years and older is based on upright A.M. collection from subjects without sodium restrictions. This test was developed and its performance characteristics determined by [facility] in a manner consistent with CLIA requirements. This test has not been cleared or approved by the U.S. Food and Drug Administration. Blood 11/10/2017 7:47 AM EDT 11/10/2017 8:04 AM EDT Micheal Figueredo MD LAB BLOOD ORDERABLES Fi nal Result [facility]PATH [address] [place] [address] * CPK (creatine kinase) (11/10/2017 7:47 AM EDT) CREATINE KINASE 174 21 - 215 U/L [facility] Blood 11/10/2017 7:47 AM EDT 11/10/2017 8:03 AM EDT us Micheal Figueredo MD LAB BLOOD BKR ORDERABLE S Final Result Performing Organization Address [facility] Co de Phone Number [address] [address] * Renal panel (11/10/2017 7:47 AM EDT) SODIUM 142 133 - 146 mmol/L [facility] POTASSIUM 4.0 3.3 - 5.1 mmol/L [facility] CHLORIDE 102 96 - 108 mmol/L [facility] CO2 30 21 - 35 mmol/L [facility] GLUCOSE 98 70 - 99 mg/dL [facility] BUN 19 6 - 19 mg/dL [facility] CREATININE 0.70 0.5 - 1.5 mg/dL [facility] CALCIUM 9.5 8.4 - 10.3 mg/dL [facility] PHOSPHORUS 4.0 2.7 - 4.5 mg/dL [facility] ALBUMIN 4.2 3.9 - 4.8 g/dL [facility] EGFR 92 >59 mL/min/1.7 3m2 [facility] Comment:If patient is black, multiply result by 1.159. Estimated glomerular filtration rate calculated using the CKD-EPI equation. ANION GAP 14 10 - 20 mmol/L [facility] Blood 11/10/2017 7:47 AM EDT 11/10/2017 8:03 AM EDT us Micheal Figueredo MD LAB BLOOD BKR ORDERABLE S Final Result Performing Organization Address City/[facility]/ZIP Co de Phone Number [address] [address] documented in this encounter Visit Diagnoses Diagnosis Essential hypertension, malignant- Primary Elevated blood pressure reading without diagnosis of hypertension documented in this encounter Additional Health Concerns Infection Onset Date Last Indicated Resolved Time CoV-Risk 02/24/2022 02/24/2022 03/07/2022 1:23 AM EDT documented as of this encounter Care Teams Stock Roller Relationship Specialty Start Date End Date Adriana Monroy MD [address] [place] [phone] [email or web address] PCP - General Internal Medicine 04/03/17 05/31/21 Adriana Monroy MD [address] [place] [phone] PCP - General Internal Medicine 06/01/21 08/23/22 Kristi Sheehan MD [address] [place] [phone] PCP - General Family Medicine 08/24/22 documented as of this encounter Additional Source Comments The information contained in this document represents components of the legal health record. It is not the complete legal health record.[facility]
--- OUTSIDE RECORDS SUMMARY | 2025-04-11 11:14 | XMS_ITS | Encounter Summary ---
Author Organization [facility] Address [address] [place] [address] Phone Care Team Providers Care Electrical Mechanical Technician Name Role Phone Adriana Monroy MD Primary Care Provider + [phone] Adriana Monroy MD Primary Care Provider + [phone] Kristi Sheehan MD Primary Care Provider + Encounter Details Date Type Department Care Team (Latest Contact Info) Description 04/18/2017 Transcribe Orders [facility] Phleb Main 30 [place] [address] Micheal Figueredo MD 100 [facility] 200 [place] [address] Essential hypertension, benign (Primary Dx); Elevated blood pressure reading without [...] Description 05/05/2025 8:00 AM EST Office Visit [facility] Orthopedics & Sports Medicine [address] [place] [address] [phone] Amita Rivera MD [address] [place] [address] Orthopedics & Sports Medicine, [facility] [place] [address] [email or web address] documented as of this encounter Procedures Procedure Name Priority Date/Time Associated Diagnosis Comments CORTISOL AM Routine 04/18/2017 8:30 AM EST Essential hypertension, benign Elevated blood pressure reading without diagnosis of hypertension RENAL PANEL Routine 04/18/2017 8:30 AM EST Essential hypertension, benign Elevated blood pressure reading without diagnosis of hypertension METANEPHRINES, PLASMA Routine 04/18/2017 8:30 AM EST Essential hypertension, benign Elevated blood pressure reading without diagnosis of hypertension ALDOSTERONE Routine 04/18/2017 8:30 AM EST Essential hypertension, benign Elevated blood pressure reading without diagnosis of hypertension RENIN Routine 04/18/2017 8:30 AM EST Essential hypertension, benign Elevated blood pressure reading without diagnosis of hypertension documented in this encounter Results * Metanephrines, plasma (04/18/2017 8:30 AM EST) METANEPHRINE <0.20 <0.50 nmol/L [facility] MED[facility]PATH [facility] CHAN Comment: (NOTE) ADDITIONAL INFORMATION This test was developed and its performance characteristics determined by [facility] in a manner consistent with CLIA requirements. This test has not been cleared or approved by the U.S. Food and Drug Administration. NORMETANEPHRINE 0.23 <0.90 nmol/L [facility] MED/PATH SUPERIOR CHAN Blood 04/18/2017 8:30 AM EST 04/18/2017 8:46 AM EST us Micheal Figueredo MD LAB BLOOD BKR ORDERABLE S Final Result [facility] MED/PATH [address] [address] [place] [address] * Cortisol AM (04/18/2017 8:30 AM EST) CORTISOL AM 6.6 6.2 - 19.4 ug/dL [facility] Blood 04/18/2017 8:30 AM EST 04/18/2017 8:46 AM EST Micheal Figueredo MD LAB BLOOD BKR ORDERABLE S Final Result Performing Organization Address [facility] de Phone Number [facility] 30 [place] [address] * Aldosterone (04/18/2017 8:30 AM EST) ALDOSTERONE 11 <=21 ng/dL [facility] LAB MED/PATH SUPERIOR Comment: (NOTE) ADDITIONAL INFORMATION Reference range for patients 11 years and older is based on upright A.M. collection from subjects without sodium restrictions. This test was developed and its performance characteristics determined by [facility] in a manner consistent with CLIA requirements. This test has not been cleared or approved by the U.S. Food and Drug Administration. Blood 04/18/2017 8:30 AM EST 04/18/2017 8:46 AM EST Micheal Figueredo MD LAB BLOOD ORDERABLES Fi nal Result Performing Organization Address [facility] de Phone Number [facility] LAB MED/PATH SUPERIOR [address] [place] [address] * Renin (04/18/2017 8:30 AM EST) RENIN ACTIVITY 15 ng/ml/h [facility] Comment: (NOTE) REFERENCE VALUE (Peripheral vein specimen) Na-deplete, upright: Mean: 5.9 Range: 2.9-10.8 Na-replete, upright: Mean: 1.0 Range: < or =0.6-3.0 ADDITIONAL INFORMATION Testing performed by Liquid Chromatography-Tandem Mass Spectrometry (LC-MS/MS). This test was developed and its performance characteristics determined by [facility] in a manner consistent with CLIA requirements. This test has not been cleared or approved by the U.S. Food and Drug Administration. Blood 04/18/2017 8:30 AM EST 04/18/2017 8:46 AM EST Micheal Figueredo MD LAB BLOOD ORDERABLES Fi nal Result [facility] MED/PATH [address] [place] [address] * Renal panel (04/18/2017 8:30 AM EST) SODIUM 140 133 - 146 mmol/L [facility] POTASSIUM 4.3 3.3 - 5.1 mmol/L [facility] CHLORIDE 101 96 - 108 mmol/L [facility] CO2 30 21 - 35 mmol/L [facility] GLUCOSE 95 70 - 99 mg/dL [facility] BUN 18 6 - 19 mg/dL [facility] CREATININE 0.80 0.5 - 1.5 mg/dL [facility] CALCIUM 9.1 8.4 - 10.3 mg/dL [facility] PHOSPHORUS 3.3 2.7 - 4.5 mg/dL [facility] ALBUMIN 4.0 3.9 - 4.8 g/dL [facility] EGFR >60 >60 mL/min/1.7 3m2 [facility] Comment:Abnormal if <60. If patient is -[place], multiply the result by 1.21. ANION GAP 13 10 - 20 mmol/L [facility] Blood 04/18/2017 8:30 AM EST 04/18/2017 8:46 AM EST Micheal Figueredo MD LAB BLOOD BKR ORDERABLE S Final Result [facility] 30 [place] [address] documented in this encounter Visit Diagnoses Diagnosis Essential hypertension, benign- Primary Elevated blood pressure reading without diagnosis of hypertension documented in this encounter Additional Health Concerns Infection Onset Date Last Indicated Resolved Time CoV-Risk 02/24/2022 02/24/2022 03/07/2022 1:23 AM EDT documented as of this encounter Care Teams Electrical Mechanical Technician Relationship Specialty Start Date End Date Adriana Monroy MD [address] [place] [phone] PCP - General Internal Medicine 04/03/17 05/31/21 Adriana Monroy MD [address] [place] [address] PCP - General Internal Medicine 06/01/21 08/23/22 Kristi Sheehan MD [address] [place] [phone] PCP - General Family Medicine 08/24/22 documented as of this encounter Additional Source Comments The information contained in this document represents components of the legal health record. It is not the complete legal health record.[facility]
--- OUTSIDE RECORDS SUMMARY | 2025-04-11 11:14 | XMS_ITS | Encounter Summary ---
Author Organization [facility] Address [address] [place] [phone] Phone Care Team Providers Care Translator And Interpreter Name Role Phone Adriana Monroy MD Primary Care Provider + [phone] Adriana Monroy MD Primary Care Provider + [phone] Kristi Sheehan MD Primary Care Provider + Encounter Details Date Type Department Care Team (Latest Contact Info) Description 04/15/2018 Transcribe Orders [address] [place] [address] Adriana Monroy MD [address] [place] [address] Hyperlipidemia, unspecified hyperlipidemia type (Primary Dx) Social History Tobacco Use [...] Upcoming Encounters Date Type Department Care Team ( st Contact Info) Description 05/05/2025 8:00 AM EST Office Visit [facility] Orthopedics & Sports Medicine [address] [place] [address] [phone] Amita Rivera MD [address] [place] [address] Orthopedics & Sports Medicine, [facility] [place] [address] [email or web address] documented as of this encounter Results * (ABNORMAL) Lipid panel (04/15/2018 7:51 AM EST) HDL 46 mg/dL [facility] Comment: Interpretation <40 mg/dL: Low HDL cholesterol (major risk factor for CHD) Greater than or equal to 60 mg/dL: High HDL cholesterol ( negative risk factor for CHD) HDL - cholesterol is affected by a number of factors, e.g. smoking, excerise, hormones, sex and age. CHOLESTEROL 224 0 - 240 mg/dL [facility] TRIGLYCERIDES 141 30 - 160 mg/dL [facility] LDL 150(H) 50 - 129 mg/dL [facility] Comment: LDL levels in terms of risk for coronary heart disease: <100 mg/dL: Optimal 100-129 mg/dL: Near or above optimal 130-159 mg/dL: Borderline high 160-189 mg/dL: High >190 mg/dL: Very High CARDIAC RISK RATIO 4.9(H) 3.3 - 4.4 C [facility] Blood 04/15/2018 7:51 AM EST 04/15/2018 7:53 AM EST us Adriana Monroy MD LAB BLOOD BKR ORDERABLES Fin al Result [facility] 30 [place] [address] documented in this encounter Visit Diagnoses Diagnosis Hyperlipidemia, unspecified hyperlipidemia type- Primary documented in this encounter Additional Health Concerns Infection Onset Date Last Indicated Resolved Time CoV-Risk 02/24/2022 02/24/2022 03/07/2022 1:23 AM EDT documented as of this encounter Care Teams Translator And Interpreter Relationship Specialty Start Date End Date Adriana Monroy MD [address] [place] [phone] [email or web address] PCP - General Internal Medicine 04/03/17 05/31/21 Adriana Monroy MD [address] [place] [phone] [email or web address] PCP - General Internal Medicine 06/01/21 08/23/22 Kristi Sheehan MD [address] [place] [phone] [email or web address] PCP - General Family Medicine 08/24/22 documented as of this encounter Additional Source Comments The information contained in this document represents components of the legal health record. It is not the complete legal health record.[facility]
--- OUTSIDE RECORDS SUMMARY | 2025-04-11 11:14 | XMS_ITS | Encounter Summary ---
Author Organization [facility] Address [address] [place] [phone] Phone Care Team Providers Care Site Acquisition Manager Name Role Phone Adriana Monroy MD Primary Care Provider + [phone] Adriana Monroy MD Primary Care Provider + [phone] Kristi Sheehan MD Primary Care Provider + Encounter Details Date Type Department Care Team (Late st Contact Info) Description 12/23/2017 Transcribe Orders [address] [place] [address] Adriana Monroy MD [address] [place] [address] [email or web address] Baldness (Primary Dx) Social History Tobacco Use Types [...] 8:00 AM EST Office Visit [facility] Orthopedics & Sports Medicine [address] [place] [phone] Amita Rivera MD [address] [place] [address] Orthopedics & Sports Medicine, [facility] [place], [place] [phone] [email or web address] documented as of this encounter Results * DHEA-Sulfate (12/23/2017 1:13 PM EDT) DHEAS 23 9.7 - 159 mcg/dL [facility] LAB MED/PATH SUPERIOR Blood 12/23/2017 1:13 PM EDT 12/23/2017 1:16 PM EDT us Adriana Monroy MD LAB BLOOD ORDERABLES Final R esult [facility] LAB MED/PATH SUPERIOR [address] [place] [address] * (ABNORMAL) Testosterone, total and free (12/23/2017 1:13 PM EDT) FREE TESTOSTERONE SEE NOTE 0.06 - 0.87 ng/dL [facility] LAB MED/PATH [facility]IOR Comment: (NOTE) Free Testosterone concentrations are calculated from total testosterone after measuring the percentage of free testosterone. Since the total testosterone in this patient was below the limit of quantification (<7 ng/dL), the free testosterone concentration could NOT be calculated. ADDITIONAL INFORMATION Testing performed by [facility]. This test was developed and its performance characteristics determined by [facility] in a manner consistent with CLIA requirements. This test has not been cleared or approved by the U.S. Food and Drug Administration. TESTOSTERONE, TOTAL <7.0(L) 8 - 60 ng/dL [facility] LAB MED/PATH SUPERIOR Comment: (NOTE) ADDITIONAL INFORMATION Testing performed by Liquid Chromatography-Tandem Mass Spectrometry (LC-MS/MS). This test was developed and its performance characteristics determined by [facility] in a manner consistent with CLIA requirements. This test has not been cleared or approved by the U.S. Food and Drug Administration. Blood 12/23/2017 1:13 PM EDT 12/23/2017 1:16 PM EDT us Adriana Monroy MD LAB BLOOD BKR ORDERABLES Fin al Result [facility] [address] [place] [address] documented in this encounter Visit Diagnoses Diagnosis Baldness- Primary Unspecified alopecia documented in this encounter Additional Health Concerns Infection Onset Date Last Indicated Resolved Time CoV-Risk 02/24/2022 02/24/2022 03/07/2022 1:23 AM EDT documented as of this encounter Care Teams Site Acquisition Manager Relationship Specialty Start Date End Date Adriana Monroy MD [address] [place] [address] PCP - General Internal Medicine 04/03/17 05/31/21 Adriana Monroy MD [address] [place] [phone] PCP - General Internal Medicine 06/01/21 08/23/22 Kristi Sheehan MD [address] [place] [phone] PCP - General Family Medicine 08/24/22 documented as of this encounter Additional Source Comments The information contained in this document represents components of the legal health record. It is not the complete legal health record.[facility]
--- OUTSIDE RECORDS SUMMARY | 2025-04-11 11:15 | XMS_ITS | Clinical Summary ---
Author Organization [facility] Address [address] [place] [phone] Phone Care Team Providers Care Orthopedic Nurse Practitioner Name Role Phone Kristi Yanes MD Primary Care Provider + Allergies Active Allergy Reactions Criticality Noted Date Comments Azithromycin Rash Low 03/03/2017 Erythromycin 05/17/2017 Ibuprofen 03/03/2017 Cannot take due to HTN Oxycodone-Acetaminophen Nausea Only 03/03/2017 Can tolerate tylenol with codeine Sulfa (Sulfonamide Antibiotics) Hives 12/18/2021 Sulfamethoxazole-Trimethopr im Rash Low 03/03/2017 Medications amLODIPine (NORVASC) 5 MG tablet Take 5 mg by mouth daily. 01/28/2017 Active hydroCHLOROthiaz leatha (HYDRODIURIL) 25 MG tablet Take 1 tablet by mouth daily. 08/16/2021 Active lisinopril (PRINIVIL,ZESTRI L) 30 MG tablet Take 1 tablet by mouth daily. 11/03/2021 Active fluticasone propionate (FLONASE) 50 mcg/actuation nasal spray 1 spray by Nasal route 2 (two) times a day. Active cholecalciferol (VITAMIN D3) 3,000 unit tablet Take 3,000 Units by mouth daily. Active cyanocobalamin, vitamin B-12, (VITAMIN B12 ORAL) Take 1 tablet by mouth daily. Active SYNTHROID 100 mcg tablet Take 100 mcg by mouth every morning. Active rosuvastatin (CRESTOR) 5 MG tablet Take 5 mg by mouth daily. Active multivitamins-mi nerals-folic vnut-ogzmfbt-ydv ein (COMPLETE SENIOR) 0.4 mg-300 mcg- 250 mcg Tab Take 1 tablet by mouth daily. Active loratadine (CLARITIN) 10 mg tablet Take 10 mg by mouth daily. Active lactobacillus combination no.4 (PROBIOTIC) 3 billion cell Cap Take by mouth. Active estradioL (ESTRACE) 0.01 % (0.1 mg/gram) vaginal cream Place vaginally. 08/31/2024 Active fexofenadine (DALE) 60 MG tablet Take 60 mg by mouth daily. Active Active Problems Problem Noted Date Diagnosed Date Recurrent UTI 12/19/2021 Assessment & Plan (12/19/2021 10:22 AM EDT): Worsening sxs Urgent Care did not send out a UCx Patient's urine sample from yesterday will be reflexed out for culture Reviewed last urine culture results from August 2021 UC visit She was given Cefpodoxime x 5 days for this round but sxs have already come back Educated regarding possible postmenopausal vaginal atrophy Will refer to Urology as discussed today Patient to use pyridium for any symptoms for today and tomorrow Await UCx results due to h/o abx alltergies and bacterial resistance Patient to call tomorrow by 3 pm to check to see if UCx results are back Patient verbalized understanding and agreement of the above Rash and other nonspecific skin eruption 022 Assessment & Plan (11/21/2021 7:07 PM EDT): Unclear etiology ? Contact dermatitis vs. Other No overt ppt factors Trial triamcinolone cream Prednisone instead of medrol per patient request Risks/benefits of therapy explained, including MAT and other treatment options.' Patient verbalized understanding and agreement of the above Allergic conjunctivitis of both eyes 11/21/2021 Assessment & Plan (11/21/2021 7:05 PM EDT): Long discussion cipro drops not indicated Has tried many rx eye drops All reportedly unsuccessful rec trial of po antihistamine And f/u with eye doc Seasonal allergies 11/21/2021 Ray's thyroiditis 02/04/2018 Hypertension 08/03/2017 Assessment & Plan (11/21/2021 7:05 PM EDT): Unclear if controlled Check Bps sergio on prednisone Encounters Date Type Department Care Team Description 03/24/2025 10:21 AM EST - 03/24/2025 11:59 PM EST Hospital Encounter [facility] Xray - [address] [address] Reggie Mora, FILOMENA-C Discharge Disposition: Home or Self Care 03/24/2025 10:20 AM EST Office Visit [facility] at [address] [phone] Reggie Mora, PA-C Pain and swelling of right knee (Primary Dx); Primary osteoarthritis of right knee 03/17/2025 Transcribe Orders [facility] [address] [place] [phone] Marek Mirella Jones Encounter for rehabilitation (Primary Dx) 03/10/2025 10:00 AM EDT - 03/10/2025 11:59 PM EDT Hospital Encounter [facility], X-Ray - [address] [place] [address] Matteo Wilson PA Discharge Disposition: Home or Self Care 03/09/2025 Transcribe Orders Virtual Department [address] [place] [phone] Matteo Wilson PA Right knee pain, unspecified chronicity (Primary Dx) 03/02/2025 Transcribe Orders Virtual Department [address] [place] [address] Kristi Yanes MD from Last 3 Months Immunizations Immunization Administration Dates Next Due COVID-19 (Pre-03/09) Pfizer Vaccine, Bivalent 12+ 02/11/2022 COVID-19 (Pre-03/09) Pfizer Vaccine, mRNA, so-sucrose, PF 03/01/2021,08/01/2020,07/10/2020 INFLUENZA, SPLIT VIRUS, TRIV ALENT W/ PRESERVATIVE IM 02/20/2016 Influenza High-Dose Quadriva lent Preservative Free IM 03/07/2022 Influenza High-Dose Trivalen t Preservative Free IM 02/22/2020 Influenza Quadrivalent MDCK Preservative Free IM 03/10/2018,05/17/2017 Influenza Quadrivalent Preservative Free IM 04/18 Influenza Recombinant Fredis valent Preservative Free IM 03/03/2019 Pneumococcal conjugate PCV13 08/05/2012 Tdap 08/15/2013 Zoster live 08/09/2014 Zoster recombinant 06/22/2019,03/09/2019 Family History Medical History Relation Comments Lung cancer Father Breast cancer Maternal Aunt Ovarian cancer Maternal Aunt Dementia Mother Relation Status Comments Father Maternal Aunt Mother Alive Social History Tobacco Use Types [...] file Not on file Not on file Last Filed Vital Signs Vital Sign Reading Time Taken Comments Blood Pressure 130/62 09/15/2024 10:28 AM EDT Pulse 64 09/15/2024 10:28 AM EDT Temperature 36 C (96.8 F) 09/15/2024 10:13 AM EDT Respiratory Rate 16 09/15/2024 10:28 AM EDT Oxygen Saturation 97% 09/15/2024 10:28 AM EDT Inhaled Oxygen Concentration - - Weight 73.9 kg (163 lb) 09/12/2024 9:18 AM EDT Height 172.7 cm (5' 8 ) 2024 2:18 PM EST Body Mass Index 24.78 2024 2:18 PM EST Plan of Treatment Upcoming Encounters Date Type Department Care Team (Late st Contact Info) Description 05/05/2025 8:00 AM EST Office Visit [facility] Orthopedics & Sports Medicine [address] [place] [address] [phone] Amita Rivera MD [address] [place] [address] Orthopedics & Sports Medicine, [facility]. [place], [place] [phone] Health Maintenance Due Date Last Done Comments HEPATITIS C SCREENING 1972 COLOGUARD 1999 FIT TEST 1999 FOBT 1999 SIGMOIDOSCOPY 1999 VIRTUAL COLONOSCOPY 1999 DEPRESSION SCREENING 11/21/2022 11/21/2021 BLOOD PRESSURE 02/23/2023 08/24/2022 Adult Td,Tdap Booster 08/16/2023 08/15/2013 INFLUENZA VACCINE (#1) 2024 , 03/30/2023, 03/07/2022, Additional history exists COVID-19 VACCINE ( season) 2025 02/19/2024, 02/26/2023, 10/08/2022, Additional history exists MAMMOGRAM 05/19/2025 05/19/2023, 04/18, 05/13/2021, Additional history exists CREATININE LEVEL 09/14/2025 09/14/2024, 11/2021, 03/16/2021, Additional history exists POTASSIUM LEVEL 09/14/2025 09/14/2024, 04/0 11/2021, 03/16/2021, Additional history exists TSH LEVEL 09/14/2025 09/14/2024, 04/0 11/2021, 11/10/2019, Additional history exists LIPID PANEL 09/14/2029 09/14/2024, 04/0 11/2021, 03/16/2021, Additional history exists COLONOSCOPY 09/15/2034 09/15/2024 COLORECTAL CANCER SCREENING 09/15/2034 ZOSTER VACCINES Completed 06/22/2019, 02/16, 08/09/2014 PNEUMOCOCCAL VACCINES (50+ years) Completed 08/15/2022, 08/05/2012 RSV VACCINE Completed 05/31/2023 OSTEOPOROSIS SCREENING INITIAL (ONE-TIME) Completed 10/19/2023, 01/07/2018 SMOKING STATUS SCREENING (Once After 26 Yrs) Completed 09/15/2024 HEPATITIS A VACCINES Aged Out No long er eligible based on patient's age to complete this topic HIB VACCINES Aged Out No longer eligi ble based on patient's age to complete this topic MENINGOCOCCAL VACCINES (ACWY) Aged Out No longer eligible based on patient's age to complete this topic MENINGOCOCCAL VACCINES (B) Aged Out N o longer eligible based on patient's age to complete this topic Medical Devices Not on file Procedures Procedure Name Priority Date/Time Associated Diagnosis Comments XR KNEE 4 OR MORE VIEWS (RIGHT) Routine 03/24/2025 10:37 AM EST Pain and swelling of right knee XR KNEE 4 OR MORE VIEWS (RIGHT) Routine 03/10/2025 10:28 AM EDT Right knee pain, unspecified chronicity ENDOSCOPY, COLON 09/15/2024 9:38 AM EDT LIPID PANEL Routine 09/14/2024 10:04 AM EDT Hypertension, unspecified type THYROID STIMULATING HORMONE (TSH) Routine 09/14/2024 10:04 AM EDT Hypertension, unspecified type COMPREHENSIVE METABOLIC PANEL (CMP) Routine 09/14/2024 10:04 AM EDT Hypertension, unspecified type BD DXA AXIAL (SPINE) WITH HIP Routine 10/19/2023 9:07 AM EDT Encounter for screening for osteoporosis BI MAMMOGRAM SCREENING WITH TOMOSYNTHESIS WITH CAD (BILATERAL) Routine 05/19/2023 8:49 AM EST Breast screening from Last 3 Months or Most Recently Relevant to Health Maintenance Results * XR KNEE 4 OR MORE VIEWS (RIGHT) (03/24/2025 10:37 AM EST) Narrative SYSTEMGENERATED, DOCUMENTATION - 03/24/2025 10:37 AM EST This image report has been auto-finalized and has not been read by a Radiologist. Interpretation has been included in the provider encounter note for this date of service. Reggie Mora PA-C IMG XR LOWER EXTREMITY Final Result * XR KNEE 4 OR MORE VIEWS (RIGHT) (03/10/2025 10:28 AM EDT) Anatomical Region Laterality Modality Knee Right Computed Radiogr aphy 03/11/2025 10:0 6 AM EDT Impressions 03/11/2025 10:09 AM EDT No acute fracture or dislocation. Mild degenerative changes. Trace joint effusion. Patellar enthesopathy. Narrative 03/11/2025 10:09 AM EDT XR KNEE 4 OR MORE VIEWS (RIGHT) Referring clinician's provided indication for this examination in [facility]: Outside Radiology Order; Pain in right knee COMPARISON: None FINDINGS: Right Knee: No acute displaced fracture or dislocation. There are mild degenerative changes with some mild joint space narrowing in the medial femoral tibial compartment and patellofemoral joint with mild marginal osteophytes off the femoral condyles tibial plateau and patella. Trace joint effusion. Small enthesophyte off the inferior lesser extent superior pole of the patella. Procedure Note Suraj Suarez MD - 03/11/2025 XR KNEE 4 OR MORE VIEWS (RIGHT) Referring clinician's provided indication for this examination in [facility]:Outside Radiology Order; Pain in right knee COMPARISON: None FINDINGS: Right Knee: No acute displaced fracture or dislocation. There are milddegenerative changes with some mild joint space narrowing in the medialfemoral tibial compartment and patellofemoral joint with mild marginalosteophytes off the femoral condyles tibial plateau and patella. Tracejoint effusion. Small enthesophyte off the inferior lesser extent superiorpole of the patella. IMPRESSION: No acute fracture or dislocation. Mild degenerative changes. Trace joint effusion. Patellar enthesopathy. us Matteo BUTT IMG XR LOWER EXTREMITY Ev l Result * ENDOSCOPY, COLON (09/15/2024 9:38 AM EDT) Narrative Transcriptions Frankie Guerrero MD - 09/15/2024 9:38 AM EDT [facility] Patient Name: Mariel Josue Attending MD:: FRANKIE GUERRERO MD, Procedure Date: 09/15/2024 9:38 AM Date of : 1955 Age: 69 Admit Type: Outpatient Gender: Female Room: [place] [address] Referring MD: KRISTI YANES MD Exam Type: Colonoscopy Indications: Screening for colorectal malignant neoplasm, Last colonoscopy: December 2010 Medications: Propofol per Anesthesia Procedure: Informed consent was obtained from the patientafter discussion of the indications, limitations, alternatives, benefits, and risks of the procedure. Risks specifically discussed include but are not limited to medication reactions, missed lesions, bleeding, perforation, or the need for emergent surgery. Throughout the procedure, the patient's blood pressure, pulse, end-tidal CO2, and oxygensaturations were monitored continuously. The Olympus adult variable colonoscope CF-AR425E #4 was introduced through the anus and advanced to the terminal ileum, with identification of theappendiceal orifice and IC valve. The terminal ileum, ileocecal valve, appendiceal orifice, and rectum were photographed. The patient tolerated the procedure well. The quality of the bowel preparation wasgood. The bowel preparation used was GoLYTELY via splitdose instruction. The colonoscopy was somewhat difficult due to multiple diverticula in the colon. Complications: No immediate complications. Estimated blood loss:None. Findings: The digital rectal exam was normal. Pertinent negatives include no palpable rectal lesions. Hemorrhoids were found on perianal exam. The retroflexed view of the distal rectum and anal verge was normal and showed no anal or rectal abnormalities. Many small-mouthed diverticula were found in the sigmoid colon. There was evidence of diverticular spasm. The exam was otherwise without abnormality. The terminal ileum appeared normal. Retroflexion in the right colon was performed. Impression: - Hemorrhoids found on perianal exam. - The distal rectum and anal verge are normal on retroflexion view. - Mild diverticulosis in the sigmoid colon. Therewas evidence of diverticular spasm. - The examination was otherwise normal. - The examined portion of the ileum was normal. - No specimens collected. Recommendation: - High fiber diet. - Repeat colonoscopy in 10 years for screening purposes. FRANKIE GUERRERO MD 09/15/2024 10:14:58 AM This report has been signed electronically. Number of Addenda: 0 Note Initiated On: 09/15/2024 9:38 AM Procedure Code(s): --- Professional --- 68359, Colonoscopy, flexible; diagnostic, including collection of specimen(s) by brushing or washing, when performed (separateprocedure) --- Technical --- 54359, Colonoscopy, flexible; diagnostic, including collection of specimen(s) by brushing or washing, when performed (separateprocedure) Diagnosis Code(s): --- Professional --- Z12.11, Encounter for screening for malignantneoplasm of colon K64.9, Unspecified hemorrhoids K57.30, Diverticulosis of large intestine without perforation or abscess without bleeding --- Technical --- Z12.11, Encounter for screening for malignantneoplasm of colon K64.9, Unspecified hemorrhoids K57.30, Diverticulosis of large intestine without perforation or abscess without bleeding CPT copyright 2021 [employer]. All rights reserved. The codes documented in this report are preliminary and upon professor of languages reviewmay be revised to meet current compliance requirements. Procedure Date: 09/15/2024 9:38:[address] [place] [phone] [place] Kristi Yanes MD GI PROCEDURE ORDERABLES Final Result * Comprehensive metabolic panel (09/14/2024 10:04 AM EDT) SODIUM 142 133 - 146 mmol/L [facility] POTASSIUM 4.9 3.3 - 5.1 mmol/L [facility] CHLORIDE 105 96 - 108 mmol/L [facility] CO2 28 21 - 35 mmol/L [facility] BUN 16 6 - 19 mg/dL [facility] CREATININE 0.70 0.5 - 1.5 mg/dL [facility] GLUCOSE 95 70 - 99 mg/dL [facility] ALBUMIN 4.1 3.9 - 4.8 g/dL [facility] TOTAL PROTEIN 6.7 6.5 - 8.0 g/dL [facility] CALCIUM 8.9 8.4 - 10.3 mg/dL [facility] ALKALINE PHOSPHATASE 71 39 - 117 U/L [facility] TOTAL BILIRUBIN 0.4 0.0 - 1.2 mg/dL [facility] AST 25 0 - 37 U/L [facility] ALT 18 0 - 40 U/L [facility] GLOBULIN 2.6 1 - 4.8 g/dL [facility] EGFR 93 >59 mL/min/1.7 3m2 [facility] Comment:Estimated glomerular filtration rate calculated using the CKD-EPI refit equation. ANION GAP 14 10 - 20 mmol/L [facility] Blood 09/14/2024 10:0 4 AM EDT 09/14/2024 10:11 AM EDT us Kristi Yanes MD LAB BLOOD BKR ORDERABLES Final Result Performing Organization Address City/[facility]/ZIP Co de Phone Number [address] [address] * TSH (09/14/2024 10:04 AM EDT) TSH 2.23 0.27 - 4.20 uIU/mL [facility] Blood 09/14/2024 10:0 4 AM EDT 09/14/2024 10:11 AM EDT us Kristi Yanes MD LAB BLOOD BKR ORDERABLES Final Result Performing Organization Address City/[facility] Co de Phone Number [address] [address] * (ABNORMAL) Lipid panel (09/14/2024 10:04 AM EDT) HDL 54 mg/dL [facility] Comment: Interpretation <40 mg/dL: Low HDL cholesterol (major risk factor for CHD) Greater than or equal to 60 mg/dL: High HDL cholesterol ( negative risk factor for CHD) HDL - cholesterol is affected by a number of factors, e.g. smoking, excerise, hormones, sex and age. CHOLESTEROL 167 0 - 240 mg/dL [facility] TRIGLYCERIDES 100 30 - 160 mg/dL [facility] LDL 93 50 - 129 mg/dL [facility] Comment: LDL levels in terms of risk for coronary heart disease: <100 mg/dL: Optimal 100-129 mg/dL: Near or above optimal 130-159 mg/dL: Borderline high 160-189 mg/dL: High >190 mg/dL: Very High CARDIAC RISK RATIO 3.1(L) 3.3 - 4.4 [facility] Blood 09/14/2024 10:0 4 AM EDT 09/14/2024 10:11 AM EDT us Kristi Yanes MD LAB BLOOD BKR ORDERABLES Final Result [facility] [address] [place] [address] * BD DXA AXIAL (SPINE) WITH HIP [...] BD BONE DENSITY DEXA Fin al Result * BI MAMMOGRAM SCREENING WITH TOMOSYNTHESIS WITH [...] finding. DENSITY: There are scattered fibroglandular densities. Kristi Yanes MD IMG MG EXAMS Final Re sult from Last 3 Months or Most Recently Relevant to Health Maintenance Insurance MEDICARE PPO BLUE REPLACEMENT [facility] MEDICARE PPO BLUE REPLACEMENT [place] BLUE REPLACEMENT Care Teams Orthopedic Nurse Practitioner Relationship Specialty Start Date End Date Kristi Yanes MD [address] [place] [phone] [email or web address] PCP - General Family Medicine 08/24/22 Additional Source Comments The information contained in this document represents components of the legal health record. It is not the complete legal health record.[facility]
--- OUTSIDE RECORDS SUMMARY | 2025-04-11 11:15 | XMS_ITS | Encounter Summary ---
Author Organization [facility] Address [address] [place] [phone] Phone Care Team Providers Care Transport Company Manager Name Role Phone Adriana Monroy MD Primary Care Provider + [phone] Adriana Monroy MD Primary Care Provider + [phone] Kristi Sheehan MD Primary Care Provider + Encounter Details Date Type Department Care Team (Late Contact Info) Description 02/23/2020 Ancillary Orders Virtual Department [address] [place] [address] Adriana Monroy MD [address] [place] [phone] Breast screening Social History Tobacco Use Types [...] Description 05/05/2025 8:00 AM EST Office Visit [facility] Orthopedics & Sports Medicine [address] [place] [phone] Amita Rivera MD [address] [place] [address] Orthopedics & Sports Medicine, [facility] [place] [place] [address] documented as of this encounter Results * BI MAMMOGRAM SCREENING WITH TOMOSYNTHESIS WITH CAD (BILATERAL) (05/08/2020 8:01 AM EST) Anatomical Region Laterality Modality Breast Left, Breast Right, Breast Bilateral Bila teral Mammography 05/08/2020 8:21 AM EST Impressions 05/08/2020 8:23 AM EST No mammographic evidence of malignancy. BI-RADS CATEGORY: 1 - Negative. DENSITY: There are scattered fibroglandular densities. Narrative 05/08/2020 8:23 AM EST Standard digital full-field 2-D C view and two-plane tomographic imaging was performed and compared with multiple prior studies, most recently 05/06/2019, with utilization of computer-aided detection. The breasts are composed of scattered fibroglandular densities. The stromal markings are essentially unchanged in overall appearance and distribution. No dominant spiculated mass, suspicious clustered microcalcifications, or focal zone of pathologic skin thickening or retraction are noted to have arisen in the interim. Procedure Note Brad Herbert MD - 05/08/2020 Standard digital full-field 2-D C view and two-plane tomographic imagingwas performed and compared with multiple prior studies, most /20/2019, with utilization of computer-aided detection. The breasts are composed of scattered fibroglandular densities. Thestromal markings are essentially unchanged in overall appearance anddistribution. No dominant spiculated mass, suspicious clusteredmicrocalcifications, or focal zone of pathologic skin thickening orretraction are noted to have arisen in the interim. IMPRESSION: No mammographic evidence of malignancy. BI-RADS CATEGORY: 1 - Negative. DENSITY: There are scattered fibroglandular densities. Adriana Monroy MD IMG MG EXAMS Final Result documented in this encounter Visit Diagnoses Diagnosis Breast screening Breast screening, unspecified Breast screening Breast screening, unspecified documented in this encounter Additional Health Concerns Infection Onset Date Last Indicated Resolved Time CoV-Risk 02/24/2022 02/24/2022 03/07/2022 1:23 AM EDT documented as of this encounter Care Teams Transport Company Manager Relationship Specialty Start Date End Date Adriana Monroy MD [address] [place] [phone] [email or web address] PCP - General Internal Medicine 04/03/17 05/31/21 Adriana Monroy MD [address] [place] [phone] [email or web address] PCP - General Internal Medicine 06/01/21 08/23/22 Kristi Sheehan MD [address] [place] [phone] [email or web address] PCP - General Family Medicine 08/24/22 documented as of this encounter Additional Source Comments The information contained in this document represents components of the legal health record. It is not the complete legal health record.[facility]
== END 2025-04-11 10:30 | disposition home or self-care (01) ==
LOC: HO.RHES 09:39
PROVIDERS: PCP Family Medicine; Visit Provider Internal Medicine Rheumatology
DX: M77.01 Medial epicondylitis, right elbow (principal); M25.561 Pain in right knee; M18.9 Osteoarthritis of first carpometacarpal joint, unspecified
CPT/HCPCS: 99213; G2211

== ENCOUNTER → 2025-04-11 09:39 | Outpatient (BNVA) | payer MEDICARE, SELFPAY | PROVIDERS: PCP Family Medicine; Visit Provider Internal Medicine Rheumatology | DX: M77.01 Medial epicondylitis, right elbow (principal); M18.9 Osteoarthritis of first carpometacarpal joint, unspecified; M25.561 Pain in right knee; Z79.1 Long term (current) use of non-steroidal anti-inflammatories (NSAID) | CPT/HCPCS: 99212 ==